=== PATIENT | female | born 1995 | race Caucasian/White ===

== ENCOUNTER 2020-04-21 | Outpatient (REF) | payer OTHER, SELFPAY | END 2020-04-21 00:01 | disposition home or self-care (01) | LOC: HO.LNP | PROVIDERS: Visit Provider Family Medicine | DX: Z20.828 Contact with and (suspected) exposure to other viral communicable diseases (principal) | CPT/HCPCS: 0241U; U0003 ==

== ENCOUNTER 2021-05-12 10:54 | Outpatient (REF) | payer OTHER, SELFPAY ==
[2021-05-12 13:41] LABS: Anion Gap 13 (12-20); Blood Urea Nitrogen 8 mg/dL (9-16); Carbon Dioxide 24 mmol/L (22-29); Chloride 105 mmol/L (96-108); Estimated Glomerular Filt Rate > 60; Glucose Random 91 mg/dL (60-115); Sodium 138 mmol/L (135-145)
== END 2021-05-12 10:55 | disposition home or self-care (01) ==
LOC: HO.WFDLDS 10:54
PROVIDERS: Visit Provider Hospitalist
DX: M54.32 Sciatica, left side (principal)
CPT/HCPCS: 36415; 80048

== ENCOUNTER 2021-07-07 18:03 | Outpatient (REF) | payer OTHER, SELFPAY ==
--- NOTE | ~2021-07-07 | MR_ITS ---
EXAMINATION: MR LUMBAR SPINE WITHOUT CONTRAST CLINICAL INFORMATION: 26-year-old with low back pain and left sciatica. COMPARISON: None TECHNIQUE: MRI of the lumbar spine was obtained using routine sequences without contrast. FINDINGS: Coronal Alignment: Slight mid lumbar levocurvature noted, which is nonspecific and may be positional or related to muscle spasm. Sagittal Alignment: Normal. Lumbosacral Junction: Transitional anatomy with lowest lumbar-like segment labeled as S1, which is partially lumbarized on the right, with a rudimentary S1-S2 intervertebral disc space. Vertebral Bodies: Normal height. Disc Spaces and Endplates: Lumbar intervertebral disc space heights are well maintained. There is mild disc desiccation at L5-S1. No significant spondylosis. Endplates appear intact. Spinal Canal: No abnormal developmental findings. Bone Marrow: No significant marrow-replacing process or bone marrow edema. Conus Medullaris: Terminates at L1. Morphology and signal is normal. Intradural Nerve Roots: Within normal limits. L5-S1: Central to left subarticular disc herniation noted with impingement on the left S1 nerve root in the subarticular zone and mild flattening of the left side of the dural sac. Mild facet arthropathy noted bilaterally without significant central spinal canal stenosis. Mild foraminal narrowing noted bilaterally without neural impingement. The remaining lumbar levels demonstrate no significant disc bulge or herniation and no significant canal or neuroforaminal stenosis. There is minor facet arthropathy at L4-L5. Paraspinal/Retroperitoneal: The paravertebral soft tissues appear grossly unremarkable. MR/MR lumbar spine wo con IMPRESSION: 1. Disc degenerative changes at L5-S1 with a central to left subarticular disc herniation impinging on the traversing left S1 nerve root, as detailed above. 2. Qepc-ag-[id number] facet arthrosis bilaterally at L5-S1 and minor facet arthrosis bilaterally at L4-L5 with mild foraminal narrowing at L5-S1 without neural impingement.
== END 2021-07-07 18:04 | disposition home or self-care (01) ==
LOC: HO.MRI 18:03
PROVIDERS: PCP Hospitalist; Visit Provider Hospitalist
DX: M54.32 Sciatica, left side (principal); T42.6X5A Adverse effect of other antiepileptic and sedative-hypnotic drugs, initial encounter
CPT/HCPCS: 72148

== ENCOUNTER → 2021-08-13 13:03 | Outpatient (BNVA) | payer OTHER, SELFPAY | PROVIDERS: PCP Hospitalist; Visit Provider Nurse Practitioner Family | DX: M51.16 Intervertebral disc disorders with radiculopathy, lumbar region (principal); M51.37 Other intervertebral disc degeneration, lumbosacral region | CPT/HCPCS: 99202 ==

== ENCOUNTER 2021-08-25 06:21 | Outpatient (REF) | payer OTHER, SELFPAY ==
--- NOTE | ~2021-08-25 | FL_ITS ---
EXAMINATION: Intraoperative fluoroscopy CLINICAL INFORMATION: Intravertebral disc degeneration COMPARISON: Lumbar spine MRI 07/07/2021 TECHNIQUE: Intraoperative fluoroscopy was provided for use by Dr. Barraza. A total of 2 images were saved to PACS. A radiologist was not present during imaging. Today's dictation is only for administrative purposes to document intraoperative fluoroscopic usage. TOTAL FLUOROSCOPIC TIME: 0.3 minutes FL/FL guidance in treatment room FINDINGS~\^^ Intraoperative fluoroscopy provided for use by Dr. Barraza. Please see operative note for detailed findings.
== END 2021-08-25 06:22 | disposition home or self-care (01) ==
LOC: HO.RADIR 06:21
PROVIDERS: Visit Provider Internal Medicine
DX: M51.16 Intervertebral disc disorders with radiculopathy, lumbar region (principal); M51.37 Other intervertebral disc degeneration, lumbosacral region
CPT/HCPCS: 62323; J1040; Q9967

== ENCOUNTER → 2021-09-22 13:37 | Outpatient (BNVA) | payer OTHER, SELFPAY | PROVIDERS: PCP Hospitalist; Visit Provider Nurse Practitioner Family | DX: M51.16 Intervertebral disc disorders with radiculopathy, lumbar region (principal) ==

== ENCOUNTER 2021-12-08 06:18 | Outpatient (REF) | payer OTHER, SELFPAY ==
--- NOTE | ~2021-12-08 | FL_ITS ---
CLINICAL INDICATION: Other intervertebral disc degeneration, lumbosacral region. FINDINGS: Technical assistance and equipment were provided by the Department of Radiology during intraoperative fluoroscopy for percutaneous injection. 4, limited fluoroscopic spot images are submitted. A radiologist was not present during the procedure. Images demonstrate the tip of a percutaneous needle to project over the posterior elements of the lower lumbar/upper sacral spine. Contrast has been injected, some of which may lie in the epidural space. The images are available for review on PACS. TOTAL FLUOROSCOPY TIME: 0.6 minutes. CUMULATIVE DOSE: 42.8 mGy FL/FL guidance in treatment room IMPRESSION: Technical assistance and equipment provided by the Department of Radiology during intraoperative fluoroscopy, as above. Please see operative report for further details.
== END 2021-12-08 06:19 | disposition home or self-care (01) ==
LOC: HO.RADIR 06:18
PROVIDERS: Visit Provider Internal Medicine
DX: M51.16 Intervertebral disc disorders with radiculopathy, lumbar region (principal); M51.37 Other intervertebral disc degeneration, lumbosacral region
CPT/HCPCS: 62323; J1040

== ENCOUNTER 2021-12-15 05:46 | Outpatient (REF) | payer OTHER, SELFPAY ==
--- NOTE | ~2021-12-15 | FL_ITS ---
EXAMINATION: XR FLUOROSCOPY WITH IMAGES CLINICAL INFORMATION: M51.16 - Intervertebral disc disorders with radiculopathy, lumbar region COMPARISON: MR lumbar spine to 222 TECHNIQUE: Fluoroscopy performed by Dr. Rocco Curry. Fluoroscopy time: 1.1 minutes. Cumulative Dose: 35.7 mGy. DAP: 4.45 Gycm2. Images: 2. FINDINGS: Lateral view shows needle at the sacral hiatus. The frontal view shows epidural contrast with some contrast in the nerve sheath. No visible vascular communication. FL/FL guidance in treatment room IMPRESSION: Fluoroscopy for pain management procedure.
== END 2021-12-15 05:47 | disposition home or self-care (01) ==
LOC: HO.RADIR 05:46
PROVIDERS: Visit Provider Internal Medicine
DX: M54.16 Radiculopathy, lumbar region (principal); M51.37 Other intervertebral disc degeneration, lumbosacral region
CPT/HCPCS: 62323; J1020; J1040

== ENCOUNTER → 2022-01-07 08:35 | Outpatient (BNVA) | payer OTHER, SELFPAY | PROVIDERS: PCP Hospitalist; Visit Provider Internal Medicine | DX: M51.16 Intervertebral disc disorders with radiculopathy, lumbar region (principal) | CPT/HCPCS: 99212 ==

== ENCOUNTER 2023-12-28 15:54 | Outpatient (AMB) | payer OTHER, SELFPAY ==
[2023-12-28 15:57] VITALS: BP 112/66; PULSE 78; RESP 12; O2SAT 99; BMI 39.1
--- NOTE | 2023-12-28 15:57 | MHC.PC.OV ---
Vital Signs 12/28/23 15:57 Height 5 ft 6 in Weight 242 lb BMI 39.1 BP 112/66 Blood Pressure Location Rt brachial Position Sitting Respiration 12 Pulse 78 Pulse Source Pulse Oximeter Pulse Oximetry (%) 99 Oxygen Delivery Method Room Air Intake Visit Reasons: new pt / ed follow up as well Patient Registration Specialist Required: No Accompanied by: Self / Same As Patient Allergies amoxicillin [AMOXICILLIN] Allergy (Unknown, Verified 12/28/23 16:05) UKN, hives Sulfa (Sulfonamide Antibiotics) Allergy (Unknown, Verified 12/28/23 16:05) hives gabapentin Adverse Reaction (Severe, Verified 12/28/23 16:05) Agitated Tobacco use date assessed: 12/28/23 Dental Screening Dental Screen Date: 12/28/23 Did you have a dental visit in the last 12 months?: Yes Did you have a dental problem in the last 6 months where you did not have access to dental care?: No Was dental information given to patient?: Patient has dentist HPI HPI Comments History of Present Illness Details This is a 28-year-old female with a past medical history of anemia, lumbar degenerative disc disease, anxiety, depression and asthma presenting for ER follow up. She is a new patient to me. Patient was at home on Monday morning on 12/22/2023. She was with her kids. Patient says she started to feel off and dizzy. It felt like the room was spinning. She then became more lightheaded, had tunnel vision and felt warm. She tried to lower herself to the floor and she did faint, but she says it was only for a few seconds. When she came to the room was still spinning. She felt nauseous and made it to the bathroom but vomited. She thinks this was due to anxiety. Her mother drove her to the ER. Their computers were down. She reportedly had an EKG that was normal but no additional workup due to the computer issue. She was given meclizine and antinausea medication. Meclizine made her feel very tired and gave her palpitations so she stopped using it. She also did not feel like it helped with her symptoms. She has been feeling episodes of lightheadedness and off-balance or room spinning for a few months before this. Episodes are not frequent. Now she is having the sensation like the room is spinning when she moves her head. No chest pain, palpitations (other than with meclizine), shortness of breath, vision changes, hearing loss, ear pain, numbness, weakness, speech changes. She is under a lot of stress. She took care of her father for 1 year before he in 11/22/2022. She has 3 young children at home, all boys. She is seeing a therapist. She is trying to lose weight. She has tried diet and exercise during the past year. She is interested in weight loss medication. ROS: Constitutional: No unexplained weight loss, fever, chills, increased fatigue or night sweats. Eyes: No vision changes, blurry vision, double vision, eye pain, eye redness, eye discharge. ENT: No hearing loss, ear pain, sneezing, congestion, runny nose or sore throat. Respiratory: No shortness of breath, cough or sputum production. Cardiovascular: No chest pain, chest pressure or chest discomfort. No palpitations (other than when she took meclizine) or pedal edema. Gastrointestinal: + nausea with vertigo. No abdominal pain or blood in stools. Genitourinary: No dysuria, hematuria, urinary frequency. Neurologic: +migraine headaches, no tingling, no tremors or seizures, see HPI Physical exam: Constitutional: Alert, in no distress. Head: Normocephalic. Eyes: Pupils are equal, round and reactive to light. Extraocular muscles intact. Ear, Nose and Throat: Canals clear. TMs normal. Normal nasal mucosa. No nasal discharge. No oral lesions. Neck: Supple, Full range of motion. No lymphadenopathy. No palpable thyroid masses. Respiratory: Clear to auscultation. Cardiovascular: S1 S2 regular. No murmurs. Gastrointestinal: Abdomen soft, non-tender, non-distended. Normal bowel sounds. No palpable masses. Neurologic:?Alert and oriented x 3, no focal deficits observed, CN 2-12 intact, lajavq-[id number]-[id number] normal, sensation equal and symmetric, strength UE and LE 5/5 bilaterally, reflexes equal and symmetric.? Normal gait.? No pronator drift.? Negative Romberg. Extremities: Warm and well perfused. No clubbing, cyanosis or edema. 3+ peripheral pulses bilaterally. Psychiatric: Normal mood and affect [facility] Medical History (Updated 12/29/23 @ 09:57 by DEVIN Montalvo) Obesity Depression with anxiety Syncope Vertigo Anemia Surgical History (Updated 12/28/23 @ 16:11 by Yara Soto CMA) History of microdiscectomy History of 3 sections Family History Mother Substance use disorder Mental health disorder Father Substance use disorder Mental health disorder Social History (Updated 12/28/23 @ 16:07 by Yara Soto CMA) Household Members: Spouse and Children Housing: House Are you a primary resident care provider to a significant other at home: No Do you presently have visiting nurse or other home services: No 75 years or older and lives alone: No Alcohol intake: never Patient Tobacco Use Status: Former Tobacco user e-Cigarette/Vaping Use: Never Used Second Hand Smoke Exposure: No service: No Current occupational status: unemployed Current occupation: [employer] Current occupational exposures/hazards: No Cognitive needs: No Hearing needs: No Vision needs: Yes (Glasses) Questionnaire PHQ-9 Over the last 2 weeks, how often have you been bothered by any of the following problems? 1. Little interest or pleasure in doing things: more than half the days 2. Feeling down, depressed, or hopeless: more than half the days 3. Trouble falling or staying asleep, or sleeping too much: not at all 4. Feeling tired or having little energy: more than half the days 5. Poor appetite or overeating: nearly every day 6. Feeling bad about yourself - or that you are a failure or have let yourself or your family down: more than half the days 7. Trouble concentrating on things, such as reading the newspaper or watching television: not at all 8. Moving or speaking so slowly that other people could have noticed. Or the opposite - being so fidgety or restless that you have been moving around a lot more than usual: not at all 9. Thoughts that you would be better off or of hurting yourself in some way: not at all Total score: 11 Depression Screening Interpretation: Positive Depression Screening Follow-up: Existing condition and In treatment Depression Screening Done: Yes 49414 - PHQ-9 Billing: Yes Source: Developed by Drs. Aries MasseyJackie Kurt Kroenke and colleagues, with an educational bul from [employer]. Thrive Questionnaire Date Thrive assessed: 12/28/23 I am a: Patient What is your living situation today?: I have a steady place to live Within the past 12 months, did the food you bought not last and you didn't have the money to get more?: Never true Within the past 12 months, did you worry whether your food would run out before you got money to buy more?: Never true Do you have trouble paying for medicines?: No Do you have trouble getting transportation to medical appointments?: No Do you have trouble paying your heating and electricity bill?: No Do you have trouble taking care of your child, family member or friend?: No Do you have trouble with day-to-day activities such as bathing, preparing meals, shopping, managing finances, etc.?: No Are you currently unemployed and looking for a job?: No Are you interested in more education?: No Please select the resources that you would like help with: None Currently or been in a relationship where the following occur: No concerns reported THRIVE Score: 0 AUDIT C Alcohol Use Questionnaire (AUDIT-C) 1. How often do you have a drink containing alcohol?: Never 3. How often do you have six or more drinks on one occasion?: Never Total Score: 0 DINESH-7 AMB Questionnaire DINESH-7 Date DINESH - 7 assessed: 12/28/23 Feeling nervous, anxious, or on edge: 1 = Several days Not being able to stop or control worryin = Several days Worrying too much about different things: 3 = Nearly every day Trouble relaxin = Not at all Being so restless that it is hard to sit still: 3 = Nearly every day Becoming easily annoyed or irritable: 3 = Nearly every day Source: Developed by Drs. Aries Massey, Jer Medina and colleagues, with an educational blu from [employer]. Physical exam (Primary Care) Vital Signs: Last Vital Signs Pulse 78 12/28/23 15:57 Resp 12 12/28/23 15:57 BP 112/66 12/28/23 15:57 Pulse Ox 99 12/28/23 15:57 Oxygen Delivery Method Room Air 12/28/23 15:57 BMI result Body Mass Index 39.1 Tobacco/Smoking Status: Tobacco use Status Tobacco use date assessed 12/28/23 12/28/23 16:08 Patient Tobacco Use Status Former Tobacco user 12/28/23 16:08 e-Cigarette/Vaping Use Never Used 12/28/23 16:08 PHQ-9: PHQ-9 Score PHQ-9: Total score 11 12/29/23 08:33 Depression Screening Interpretation: Positive Depression Screening Follow-up: Existing condition and In treatment Thrive Assessment: Date of Thrive Assessment Date Thrive assessed 12/28/23 12/28/23 16:08 Currently or been in a relationship where the following occur: No concerns reported Assessment and Plan Assessment & Plan (1) Vertigo: Code(s): R42 - Dizziness and giddiness (2) Syncope: Code(s): R55 - Syncope and collapse Qualifiers: Syncope type: unspecified Qualified Code(s): R55 - Syncope and collapse (3) Anemia: Code(s): D64.9 - Anemia, unspecified Qualifiers: Anemia type: iron deficiency Iron deficiency anemia type: other iron deficiency Qualified Code(s): D50.8 - Other iron deficiency anemias (4) Depression with anxiety: Code(s): F41.8 - Other specified anxiety disorders (5) Obesity: Code(s): E66.9 - Obesity, unspecified Qualifiers: Obesity type: due to excess calories Obesity classification: adult class 2 (BMI 35 - 39.9) Serious obesity comorbidity presence: with serious comorbidity Body mass index: BMI 39.0-39.9 Qualified Code(s): E66.01 - Morbid (severe) obesity due to excess calories; Z68.39 - Body mass index [BMI] 39.0-39.9, adult Plan Vertigo She continues to experience vertigo symptoms with positional movements. Meclizine caused side effects and was ineffective. Benzodiazepines not a good alternative in this situation as she does have 3 children she cares for at home, and she does not want to take medication that is sedating. Reviewed home exercises and referred for vestibular rehab. Syncope This may have been vasovagal syncope from anxiety due to her vertigo symptoms. She has not had another episode. EKG reportedly normal at ED. see detailed lab list below. Given vertigo with syncope and history of headaches proceed with MRI with and without contrast. Anemia Check labs. Depression with anxiety Followed closely by therapist. Obesity Check TSH. Unable to lose weight with lifestyle modification for more than 6 months. Hopefully vertigo symptoms will improve with PT. Once MRI and labs are resulted if there are no contraindications we will proceed with Wegovy or Zepbound Follow up in 6 weeks. Orders: Orders Complete Blood Count Auto Diff 12/28/23 D64.9 - Anemia, unspecified, R42 - Dizziness and giddiness HCG Quantitative 12/28/23 D64.9 - Anemia, unspecified, R42 - Dizziness and giddiness PT Evaluation and Treatment 12/28/23 R42 - Dizziness and giddiness TSH reflex Free T4 12/28/23 D64.9 - Anemia, unspecified, E66.9 - Obesity, unspecified, R42 - Dizziness and giddiness Comprehensive Met. Panel 12/28/23 D64.9 - Anemia, unspecified, R42 - Dizziness and giddiness Lyme IgG/IgM w/reflex to WB 12/28/23 D64.9 - Anemia, unspecified, R42 - Dizziness and giddiness IRON PROFILE 12/28/23 D64.9 - Anemia, unspecified, R42 - Dizziness and giddiness Ferritin 12/28/23 D64.9 - Anemia, unspecified, R42 - Dizziness and giddiness MR head/brain wo/w con Today R42 - Dizziness and giddiness, R55 - Syncope and collapse Coding Level of Care Code Est Pt Level 4 (44430) Complex EM visit Add On G2211 Diagnoses Vertigo R42 Syncope, unspecified syncope type R55 Syncope type: unspecified Other iron deficiency anemia D50.8 Anemia type: iron deficiency Iron deficiency anemia type: other iron deficiency Depression with anxiety F41.8 Class 2 severe obesity due to excess calories with serious comorbidity and body mass index (BMI) of 39.0 to 39.9 in adult E66.01; Z68.39 Obesity type: due to excess calories Obesity classification: adult class 2 (BMI 35 - 39.9) Serious obesity comorbidity presence: with serious comorbidity Body mass index: BMI 39.0-39.9
== END 2023-12-28 16:44 | disposition home or self-care (01) ==
PROVIDERS: PCP Hospitalist; Visit Provider Physician Assistant Medical
DX: R42 Dizziness and giddiness (principal); R55 Syncope and collapse; D50.8 Other iron deficiency anemias; F41.8 Other specified anxiety disorders; E66.01 Morbid (severe) obesity due to excess calories; Z68.39 Body mass index [BMI] 39.0-39.9, adult
CPT/HCPCS: 99214; G2211

== ENCOUNTER 2023-12-30 08:40 | Outpatient (REF) | payer OTHER, SELFPAY ==
[2023-12-30 08:54] LABS: MANUAL DIFF FLAG NO
[2023-12-30 09:36] LABS: Basophils Percent Auto 0.4 % (0-2); Eosinophils Absolute Auto 0.2 X10*3/uL (0.0-0.4); Eosinophils Percent Auto 2.7 % (0-4); Hematocrit 40.3 % (37.0-47.0); Hemoglobin 12.9 g/dl (12.0-16.0); Imm Gran Abs Auto 0.03 X10*3/uL (0.00-0.03); Imm Gran Pct Auto 0.4 % (0.0-0.4); Lymphocytes Absolute Auto 2.1 X10*3/uL (1.2-4.9); Mean Corpuscular Hemoglobin 26.2 pg (27.0-33.0); Mean Corpuscular Volume 81.9 fL (80.0-98.0); Mean Platelet Volume 8.5 fL (9.4-12.3); Monocytes Absolute Auto 0.6 X10*3/uL (0.1-1.2); Monocytes Percent Auto 6.6 % (2-11); Neutrophils Absolute Auto 5.5 x10*3/uL (2.0-8.3); Neutrophils Percent Auto 64.9 % (45-73); Platelet Count 423 X10*3/uL (160-400); Red Blood Count 4.92 X10*6/uL (4.20-5.50); Red Cell Distribution Width 15.1 % (11.0-16.0); White Blood Count 8.4 X10*3/uL (4.8-10.8)
[2023-12-30 12:04] LABS: Alanine Aminotransferase 16 U/L (0-31); Albumin Level 4.5 g/dL (3.5-5.0); Alkaline Phosphatase 75 U/L (39-117); Anion Gap 13 (12-20); Aspartate Amino Transferase 14 U/L (5-31); Bilirubin Total 0.3 mg/dL (0.0-1.0); Blood Urea Nitrogen 8 mg/dL (9-16); Calcium 9.7 mg/dL (8.4-10.2); Carbon Dioxide 23 mmol/L (22-29); Chloride 105 mmol/L (96-108); Estimated Glomerular Filt Rate > 60; Ferritin 21 ng/mL (10-122); Glucose Random 110 mg/dL (60-115); HCG Quantitative < 2 mIU/mL; Iron 49 mcg/dL (30-160); Percent Iron Saturation 15 % (15-50); Potassium 4.3 mmol/L (3.3-5.1); Sodium 137 mmol/L (135-145); TSH reflex Free T4 2.01 uIU/mL (0.32-4.0); Total Iron Binding Capacity 319 mcg/dL (228-428); Total Protein 7.7 g/dL (6.5-8.0); Unsaturated Iron Binding 270 ug/dL
[2024-01-01 17:14] LABS: Lyme Abs Screen <0.90 index
== END 2023-12-30 08:41 | disposition home or self-care (01) ==
LOC: HO.LAB 08:40
PROVIDERS: PCP Physician Assistant Medical; Visit Provider Physician Assistant Medical
DX: R42 Dizziness and giddiness (principal); D64.9 Anemia, unspecified; E66.9 Obesity, unspecified
CPT/HCPCS: 36415; 80053; 82728; 83540; 84443; 84702; 85025; 86617; 86618

== ENCOUNTER 2024-02-02 08:00 | Outpatient (RCR) | payer OTHER, SELFPAY ==
[2024-01-30 14:09] VITALS: BP 129/64; PULSE 80
--- NOTE | 2024-01-30 15:15 | MHC.PT.EP ---
[facility] [place] [facility] [place] [facility] [place] [facility] [address] [phone] F: [phone] F: [phone] F: [phone] F: [phone] Physical Therapy Plan of Care Date of Evaluation: 01/30/24 Date of Surgery: NA Diagnosis: Benign paroxysmal vertigo Assessment: Abimbola is a 28 year old female who is referred to PT for Benign paroxysmal vertigo . She reports of having sudden onset of symptoms of vertigo about 2-3 months back. She denies any trauma or falls. She reports of having room spinning dizziness with rolling, sit to supine, looking up or down and turning side to side. Her symptoms last for a few seconds. On PT examination she presented with intact saccades smooth pursuit, visual tracking, negative VBI and head thrust. She was positive for L PC BPPV. She lives with her family and is independent with all ADLS however just performs them slowly to avoid LOB. She would benefit from skilled PT to address the aforementioned impairments and improve tolerance to functional activities. Frequency and Duration: The patient will be seen 2/week for 4 weeks Short Term Goals: Longterm Goals: Patient to be educated on symptoms and indications to return to therapy when needed min 4 weeks. Pt will be negative for nystagmus or reports of vertigo in all diagnostic positions bilaterally to resolution of BPPV in 4 weeks. Patient to be able to functionally move in all planes and directions without provocation of dizziness to show return to PLOF in 4 weeks. Treatment Plan: Modalities to reduce pain, spasms and effusion. Manual therapy to restore motion and function. Therapeutic exercise to improve strength and flexibility. Neuromuscular re-education for posture and balance. Therapeutic activities to return to functional activities of daily living. Electronically signed by: Alison Bloom PT DPT Please sign and return to therapist. Thank you for your referral.
--- NOTE | 2024-03-08 13:13 | MHC.PT.DC ---
[facility] [place] [facility] [place] [facility] [place] [facility] [address] 140 [facility] [phone] F: [phone] F: [phone] F: [phone] F: [phone] Physical Therapy Discharge Report Diagnosis: Benign paroxysmal vertigo Date of Surgery: NA Date of Evaluation: 01/30/24 Date of Discharge: 03/08/24 Treatments to Date: 3 Cancellations to Date: 0 No Shows to Date: 0 Discharge Status: Achieved Goals Improved Function Discharge Summary: Karina has not had any symptoms of vertigo in over a month. She is therefore being d/c from PT. Electronically signed by: Alison Bloom PT DPT Please sign and return to therapist. Thank you for your referral.
== END 2024-03-08 13:13 | disposition home or self-care (01) ==
LOC: HO.PT 08:00
PROVIDERS: PCP Physician Assistant Medical; Visit Provider Physician Assistant Medical
DX: R42 Dizziness and giddiness (principal)
CPT/HCPCS: 95992; 97112; 97161

== ENCOUNTER 2024-02-08 09:12 | Outpatient (AMB) | payer OTHER, SELFPAY ==
--- NOTE | 2024-02-08 09:13 | MHC.PC.OV ---
Vital Signs 02/08/24 09:21 Height 5 ft 6 in Weight 245 lb 4 oz BMI 39.6 BP 108/70 Blood Pressure Location Lt brachial Position Sitting Pulse 85 Pulse Source Pulse Oximeter Pulse Oximetry (%) 95 Oxygen Delivery Method Room Air Intake Visit Reasons: vertigo Intake Note: Vertigo follow up. Environmental Research Project Manager Required: No Allergies amoxicillin [AMOXICILLIN] Allergy (Unknown, Verified 02/08/24 09:19) UKN, hives Sulfa (Sulfonamide Antibiotics) Allergy (Unknown, Verified 02/08/24 09:19) hives gabapentin Adverse Reaction (Severe, Verified 02/08/24 09:19) Agitated Tobacco use date assessed: 12/28/23 Dental Screening Dental Screen Date: 12/28/23 HPI HPI Comments History of Present Illness Details This is a 28-year-old female with a past medical history of anemia, lumbar degenerative disc disease, anxiety, depression and asthma presenting for follow up. Since her last visit she started physical therapy for vertigo. She has gone a few times, and her symptoms are much better. She only has an occasional mild episode of vertigo. MRI is scheduled next week. No further syncopal episodes. She is under a lot of stress. She took care of her father for 1 year before he in 11/22/2022. She has 3 young children at home, all boys. She is seeing a therapist. She walks every day and is doing low carb meal prep. She has tried this for 6-12 months. She has not lost weight. We reviewed her lab work. TSH was normal. She would like to try weight loss medication. Her fasting sugar was mildly elevated. She may have had cream in her coffee that day. Her platelet count was also mildly decreased. ROS: Constitutional: No unexplained weight loss, fever, chills, increased fatigue or night sweats. Eyes: No vision changes, blurry vision, double vision, eye pain, eye redness, eye discharge. ENT: No hearing loss, ear pain, sneezing, congestion, runny nose or sore throat. Respiratory: No shortness of breath, cough or sputum production. Cardiovascular: No chest pain, chest pressure or chest discomfort. No palpitations or pedal edema. Genitourinary: No dysuria, hematuria, urinary frequency. Neurologic: +migraine headaches, no tingling, no tremors or seizures, see HPI Physical exam: Constitutional: Alert, in no distress. Neck: Supple, Full range of motion. No lymphadenopathy. No palpable thyroid masses. Respiratory: Clear to auscultation. Cardiovascular: S1 S2 regular. No murmurs.y. Psychiatric: Normal mood and affect [facility] Medical History (Updated 02/08/24 @ 13:26 by DEVIN Montalvo) Abnormal CBC IFG (impaired fasting glucose) Obesity Depression with anxiety Syncope Vertigo Anemia Surgical History (Updated 12/28/23 @ 16:11 by Yara Soto CMA) History of microdiscectomy History of 3 sections Family History Mother Substance use disorder Mental health disorder Father Substance use disorder Mental health disorder Social History (Updated 12/28/23 @ 16:07 by Yara Soto CMA) Household Members: Spouse and Children Housing: House Are you a primary mall plant caretaker to a significant other at home: No Do you presently have visiting nurse or other home services: No Alcohol intake: never Patient Tobacco Use Status: Former Tobacco user e-Cigarette/Vaping Use: Never Used Second Hand Smoke Exposure: No service: No Current occupational status: unemployed Current occupation: [employer] Current occupational exposures/hazards: No Cognitive needs: No Hearing needs: No Vision needs: Yes (Glasses) Questionnaire Thrive Questionnaire Date Thrive assessed: 12/28/23 DINESH-7 AMB Questionnaire DINESH-7 Date DINESH - 7 assessed: 12/28/23 Source: Developed by Drs. Aries Massey, Jackie Browne, Jer Smyth and colleagues, with an educational blu from [employer]. Physical exam (Primary Care) Vital Signs: Last Vital Signs Pulse 85 02/08/24 09:21 BP 108/70 02/08/24 09:21 Pulse Ox 95 02/08/24 09:21 Oxygen Delivery Method Room Air 02/08/24 09:21 BMI result Body Mass Index 39.6 Tobacco/Smoking Status: Tobacco use Status Tobacco use date assessed 12/28/23 02/08/24 09:15 Patient Tobacco Use Status Former Tobacco user 02/08/24 09:15 e-Cigarette/Vaping Use Never Used 02/08/24 09:15 Thrive Assessment: Date of Thrive Assessment Date Thrive assessed 12/28/23 02/08/24 09:15 Assessment and Plan Assessment & Plan (1) Obesity: Code(s): E66.9 - Obesity, unspecified Qualifiers: Obesity type: due to excess calories Obesity classification: adult class 2 (BMI 35 - 39.9) Serious obesity comorbidity presence: with serious comorbidity Body mass index: BMI 39.0-39.9 Qualified Code(s): E66.01 - Morbid (severe) obesity due to excess calories; Z68.39 - Body mass index [BMI] 39.0-39.9, adult Plan: Continue lifestyle modifications. TSH normal. She has failed 6 months of lifestyle modifications. Prescribed Zepbound. The patient denies contraindications to GLP-1 receptor agonist. We reviewed the FDA preliminary evaluation that has not found evidence that these medications cause suicidal thoughts or actions, but the investigation is ongoing. If the patient develops these symptoms they will stop taking the medication immediately and contact the office. We reviewed more common side effects such as bloating, constipation, nausea and vomiting. We reviewed the administration and dosing schedule. The patient is instructed to continue lifestyle modifications and efforts at weight loss. We discussed how weight loss can cause physiologic changes in the body and that some patients may experience hair thinning/hair loss. (2) Vertigo: Code(s): R42 - Dizziness and giddiness Plan: Patient is very happy with results from PT. She will have MRI completed as planned given prior episode with syncope. (3) IFG (impaired fasting glucose): Code(s): R73.01 - Impaired fasting glucose Plan: Check hemoglobin A1c. (4) Abnormal CBC: Code(s): R79.89 - Other specified abnormal findings of blood chemistry Plan: Repeat CBC. Plan Follow up in 3 months. Orders: Orders Complete Blood Count Auto Diff Today R73.01 - Impaired fasting glucose, R79.89 - Other specified abnormal findings of blood chemistry Hemoglobin A1c Today R73.01 - Impaired fasting glucose, R79.89 - Other specified abnormal findings of blood chemistry Medications: New tirzepatide (weight loss) (Zepbound) for 4 weeks 2.5 mg (0.5 mL) subcut QWEEK 2 mL 0RF Coding Level of Care Code Est Pt Level 4 (90935) Complex EM visit Add On G2211 Diagnoses Class 2 severe obesity due to excess calories with serious comorbidity and body mass index (BMI) of 39.0 to 39.9 in adult E66.01; Z68.39 Obesity type: due to excess calories Obesity classification: adult class 2 (BMI 35 - 39.9) Serious obesity comorbidity presence: with serious comorbidity Body mass index: BMI 39.0-39.9 Vertigo R42 IFG (impaired fasting glucose) R73.01 Abnormal CBC R79.89
[2024-02-08 09:21] VITALS: BP 108/70; PULSE 85; O2SAT 95; BMI 39.6
== END 2024-02-08 10:03 | disposition home or self-care (01) ==
PROVIDERS: PCP Hospitalist; Visit Provider Physician Assistant Medical
DX: E66.01 Morbid (severe) obesity due to excess calories (principal); Z68.39 Body mass index [BMI] 39.0-39.9, adult; R42 Dizziness and giddiness; R73.01 Impaired fasting glucose; R79.89 Other specified abnormal findings of blood chemistry
CPT/HCPCS: 99214; G2211

== ENCOUNTER 2024-02-08 10:11 | Outpatient (REF) | payer OTHER, SELFPAY ==
[2024-02-08 14:42] LABS: MANUAL DIFF FLAG NO
[2024-02-08 14:48] LABS: Basophils Percent Auto 0.4 % (0-2); Eosinophils Absolute Auto 0.2 X10*3/uL (0.0-0.4); Eosinophils Percent Auto 1.8 % (0-4); Hematocrit 38.4 % (37.0-47.0); Hemoglobin 12.4 g/dl (12.0-16.0); Imm Gran Abs Auto 0.04 X10*3/uL (0.00-0.03); Imm Gran Pct Auto 0.4 % (0.0-0.4); Lymphocytes Absolute Auto 2.3 X10*3/uL (1.2-4.9); Lymphocytes Percent Auto 25.7 % (20-40); Mean Corpuscular HGB Conc 32.3 g/dl (31.0-35.0); Mean Corpuscular Hemoglobin 26.8 pg (27.0-33.0); Mean Corpuscular Volume 83.1 fL (80.0-98.0); Mean Platelet Volume 8.6 fL (9.4-12.3); Monocytes Absolute Auto 0.5 X10*3/uL (0.1-1.2); Monocytes Percent Auto 5.2 % (2-11); Neutrophils Percent Auto 66.5 % (45-73); Platelet Count 394 X10*3/uL (160-400); Red Blood Count 4.62 X10*6/uL (4.20-5.50); Red Cell Distribution Width 14.8 % (11.0-16.0)
[2024-02-08 14:55] LABS: Estimated Average Glucose 108 mg/dL; Hemoglobin A1c % 5.4 % (<6.0)
== END 2024-02-08 10:12 | disposition home or self-care (01) ==
LOC: HO.WFDLDS 10:11
PROVIDERS: Visit Provider Physician Assistant Medical
DX: R73.01 Impaired fasting glucose (principal); R79.89 Other specified abnormal findings of blood chemistry
CPT/HCPCS: 36415; 83036; 85025

== ENCOUNTER 2024-02-13 15:53 | Outpatient (REF) | payer OTHER, SELFPAY ==
--- NOTE | ~2024-02-13 | MR_ITS ---
EXAMINATION: MR BRAIN WITHOUT AND WITH CONTRAST CLINICAL INFORMATION: vertigo r/o acoustic neuroma COMPARISON: None TECHNIQUE: Multiplanar multisequence MR imaging of the brain was obtained without and following the administration of 10 mL Gadavist intravenous contrast. FINDINGS: There is no acute infarct on diffusion-weighted imaging. There is no intracranial hemorrhage on iron-sensitive imaging. No extra-axial collection or mass effect/herniation. Normal parenchymal signal characteristics. The 7th and 8th cranial nerve complexes are symmetric in course, caliber, and enhancement characteristics. Major inner ear structures including the cochlea, semicircular canals, and vestibule are symmetric in morphology and demonstrate normal CSF signal. No enhancing intracanalicular or cerebellopontine angle mass lesion is visualized. No hydrocephalus. The ventricles are normal in morphology and size. No abnormal parenchymal or extra-axial enhancement. The midline structures are normal. The cerebellar tonsils are normally positioned. The craniocervical junction is normal. Marrow signal is within normal limits. The visualized soft tissues are without significant abnormality. No signal abnormality within the paranasal sinuses or within the mastoid air cells. Hypoplastic right maxillary sinus. MR/MR head/brain wo/w con IMPRESSION: No evidence of retrocochlear pathology. Electronically signed by: Tex Soria MD 02/28/2024 12:12 PM EDT
[2024-02-13] MEDS: gadobutroL 10 ML VIAL IVPUSH (16:30)
== END 2024-02-13 15:54 | disposition home or self-care (01) ==
LOC: HO.MRI 15:53
PROVIDERS: PCP Physician Assistant Medical; Visit Provider Physician Assistant Medical
DX: R42 Dizziness and giddiness (principal); R55 Syncope and collapse
CPT/HCPCS: 70553; A9585

== ENCOUNTER 2024-05-13 09:10 | Outpatient (AMB) | payer OTHER, SELFPAY ==
--- NOTE | 2024-05-13 09:12 | MHC.PC.OV ---
Vital Signs 05/13/24 09:19 Height 5 ft 6 in Weight 233 lb BMI 37.6 BP 110/82 Blood Pressure Location Rt brachial Position Sitting Pulse 79 Pulse Source Pulse Oximeter Pulse Oximetry (%) 99 Oxygen Delivery Method Room Air Intake Visit Reasons: med check zepbound Intake Note: Follow up Head Of [employer]s Required: No Allergies amoxicillin [AMOXICILLIN] Allergy (Unknown, Verified 05/13/24 09:12) UKN, hives Sulfa (Sulfonamide Antibiotics) Allergy (Unknown, Verified 05/13/24 09:12) hives gabapentin Adverse Reaction (Severe, Verified 05/13/24 09:12) Agitated Tobacco use date assessed: 05/13/24 Dental Screening Dental Screen Date: 12/28/23 HPI HPI Comments History of Present Illness Details This is a 29-year-old female with a past medical history of obesity, impaired fasting glucose, depression with anxiety, vertigo, panic attacks and asthma presenting for follow up. The patient is doing well on Zepbound 5 mg weekly. She initially experienced nausea and vomiting when she increased the dose for the 1st week. Her side effects resolved. She is losing approximately 2 lb per week. She is able to make healthier choices even when she is busy. She is making sure to supplement with a protein drink if she is not hungry or if she is on the go. Her weight is down to 233 lb today from 245 lb in February. The holiday was a bit underwhelming for her. Her son's birthday falls on or near . Some of her family members did not really recognize it this year. She has not spoken with her therapist since July of this year. The patient has a abandonment issues, and she says her long-time therapist forgot about some of their appointments which triggered her. The patient lived with her grandfather when she was growing up. When he she was in the care of an aunt sometimes and her mother. Patient says her other 2 siblings were not raised by her mother. The patient says when she was a teenager ADD medication was recommended to her, and she wonders if some of her depression symptoms are due to untreated ADD. She finds it very difficult to make decisions for herself. She feels like this affects her quality of life and parenting. ROS: Constitutional: No unexplained weight loss, fever, chills, fatigue or night sweats. Psychiatric: No SI/HI. Physical exam: Constitutional: Alert, in no distress. Respiratory: Clear to auscultation. Cardiovascular: S1 S2 regular. No murmurs. Psychiatric: Normal mood and affect [facility] Medical History (Updated 02/08/24 @ 13:26 by DEVIN Montalvo) Abnormal CBC IFG (impaired fasting glucose) Obesity Depression with anxiety Syncope Vertigo Anemia Surgical History History of microdiscectomy History of 3 sections Family History Mother Substance use disorder Mental health disorder Father Substance use disorder Mental health disorder Social History (Updated 05/13/24 @ 09:19 by Suzanna Sr CMA) Household Members: Spouse and Children Housing: House Are you a primary intensive care ambulance paramedic to a significant other at home: No Do you presently have visiting nurse or other home services: No 75 years or older and lives alone: No Alcohol intake: never Patient Tobacco Use Status: Former Tobacco user e-Cigarette/Vaping Use: Never Used Second Hand Smoke Exposure: No service: No Current occupational status: unemployed Current occupation: [employer] Current occupational exposures/hazards: No Cognitive needs: No Hearing needs: No Vision needs: Yes (Glasses) Questionnaire PHQ-9 Over the last 2 weeks, how often have you been bothered by any of the following problems? 1. Little interest or pleasure in doing things: more than half the days 2. Feeling down, depressed, or hopeless: more than half the days 3. Trouble falling or staying asleep, or sleeping too much: more than half the days 4. Feeling tired or having little energy: more than half the days 5. Poor appetite or overeating: more than half the days 6. Feeling bad about yourself - or that you are a failure or have let yourself or your family down: more than half the days 7. Trouble concentrating on things, such as reading the newspaper or watching television: more than half the days 8. Moving or speaking so slowly that other people could have noticed. Or the opposite - being so fidgety or restless that you have been moving around a lot more than usual: nearly every day 9. Thoughts that you would be better off or of hurting yourself in some way: not at all Total score: 17 Source: Developed by Drs. Aries Massey, Jackie Browne, Jer Smyth and colleagues, with an educational blu from [employer] Thrive Questionnaire Date Thrive assessed: 05/07/24 I am a: Patient What is your living situation today?: I choose not to answer this question Within the past 12 months, did the food you bought not last and you didn't have the money to get more?: I choose not to answer this question Within the past 12 months, did you worry whether your food would run out before you got money to buy more?: I choose not to answer this question Do you have trouble paying for medicines?: I choose not to answer this question Do you have trouble getting transportation to medical appointments?: I choose not to answer this question Do you have trouble paying your heating and electricity bill?: I choose not to answer this question Do you have trouble taking care of your child, family member or friend?: I choose not to answer this question Do you have trouble with day-to-day activities such as bathing, preparing meals, shopping, managing finances, etc.?: I choose not to answer this question Are you currently unemployed and looking for a job?: I choose not to answer this question Are you interested in more education?: I choose not to answer this question Please select the resources that you would like help with: None Currently or been in a relationship where the following occur: I choose not to answer THRIVE Score: 0 AUDIT C Alcohol Use Questionnaire (AUDIT-C) 1. How often do you have a drink containing alcohol?: Never 3. How often do you have six or more drinks on one occasion?: Never Total Score: 0 DINESH-7 AMB Questionnaire DINESH-7 Date DINESH - 7 assessed: 12/28/23 Feeling nervous, anxious, or on edge: 1 = Several days Not being able to stop or control worryin = Several days Worrying too much about different things: 1 = Several days Trouble relaxin = Several days Being so restless that it is hard to sit still: 0 = Not at all Becoming easily annoyed or irritable: 1 = Several days Feeling afraid as if something awful might happen: 1 = Several days Total DINESH-7 score (0-4 normal; 5-9 mild; 10-14 moderate; 15-21 severe): 6 Source: Developed by Drs. Aries Massey, Jackie Browne, Jer Smyth and colleagues, with an educational blu from [employer] Physical exam (Primary Care) Vital Signs: Last Vital Signs Pulse 79 05/13/24 09:19 BP 110/82 05/13/24 09:19 Pulse Ox 99 05/13/24 09:19 Oxygen Delivery Method Room Air 05/13/24 09:19 BMI result Body Mass Index 37.6 Tobacco/Smoking Status: Tobacco use Status Tobacco use date assessed 05/13/24 05/13/24 09:15 Patient Tobacco Use Status Former Tobacco user 05/13/24 09:19 e-Cigarette/Vaping Use Never Used 05/13/24 09:19 PHQ-9: PHQ-9 Score PHQ-9: Total score 17 05/13/24 10:01 Thrive Assessment: Date of Thrive Assessment Date Thrive assessed 05/07/24 05/13/24 09:15 Currently or been in a relationship where the following occur: I choose not to answer Coding Level of Care Code Est Pt Level 4 (76289) Complex EM visit Add On G2211 Diagnoses IFG (impaired fasting glucose) R73.01 Depression with anxiety F41.8 Obesity, class 2 E66.812 Assessment & Plan Assessment & Plan (1) IFG (impaired fasting glucose): Code(s): R73.01 - Impaired fasting glucose Category: Medical (2) Depression with anxiety: Code(s): F41.8 - Other specified anxiety disorders Category: Medical (3) Obesity, class 2: Code(s): E66.812 - Obesity, class 2 Plan Patient will continue Zepbound 5 mg weekly and lifestyle modifications. She is following a healthy diet. She is making sure she is getting good protein intake. Recommended using a body composition scale to track weight loss. The medication is still medically necessary due to BMI 37.6 and impaired fasting glucose. I recommended patient restart therapy. She would like a referral to a new therapist. Order placed. I also recommended she consider a consult with the psychiatrist which she can discuss with the therapist. Regarding concerns about ADD I recommended a new evaluation and gave her the information for the ADD center [facility]. Follow up in 3 months for a physical exam. Orders: Referrals Psychology Referral F41.8 - Other specified anxiety disorders
[2024-05-13 09:19] VITALS: BP 110/82; PULSE 79; O2SAT 99; BMI 37.6
== END 2024-05-13 10:02 | disposition home or self-care (01) ==
PROVIDERS: PCP Physician Assistant Medical; Visit Provider Physician Assistant Medical
DX: R73.01 Impaired fasting glucose (principal); F41.8 Other specified anxiety disorders; E66.812 Obesity, class 2; Z68.37 Body mass index [BMI] 37.0-37.9, adult

== ENCOUNTER → 2024-05-13 09:10 | Outpatient (BNVA) | payer OTHER, SELFPAY | PROVIDERS: PCP Physician Assistant Medical; Visit Provider Physician Assistant Medical | DX: R73.01 Impaired fasting glucose (principal); F41.8 Other specified anxiety disorders; E66.812 Obesity, class 2; Z68.37 Body mass index [BMI] 37.0-37.9, adult; Z79.899 Other long term (current) drug therapy | CPT/HCPCS: 96127; 99212 ==

== ENCOUNTER 2024-08-15 16:16 | Outpatient (AMB) | payer OTHER, SELFPAY ==
--- NOTE | 2024-08-15 16:24 | A.OFFPC_ITS ---
Vital Signs 08/15/24 16:29 08/15/24 17:16 Height 5 ft 3 in 5 ft 6 in Weight 218 lb 2 oz 218 lb 2 oz BMI 38.6 35.2 BP 119/56 L Blood Pressure Location Lt brachial Position Sitting Respiration 16 Pulse 78 Pulse Source Pulse Oximeter Temp 98.8 F Temp Source Temporal Artery Scan Pulse Oximetry (%) 99 Oxygen Delivery Method Room Air Intake Visit Reasons: annual physical exam Intake Note: patient here for CPE Automotive Mechanic Required: No Is last menstrual period known: Yes Last menstrual period: 08/04/24 Post menopausal: No Patient : No Allergies amoxicillin [AMOXICILLIN] Allergy (Unknown, Verified 08/15/24 16:27) UKN, hives Sulfa (Sulfonamide Antibiotics) Allergy (Unknown, Verified 08/15/24 16:27) hives gabapentin Adverse Reaction (Severe, Verified 08/15/24 16:27) Agitated Tobacco use date assessed: 08/15/24 Dental Screening Dental Screen Date: 08/15/24 Did you have a dental visit in the last 12 months?: No Did you have a dental problem in the last 6 months where you did not have access to dental care?: No Was dental information given to patient?: Patient declined HPI HPI Comments History of Present Illness Details This is a 29-year-old female with a past medical history of obesity, impaired fasting glucose, depression with anxiety, vertigo, panic attacks and asthma presenting for a physical exam. The patient is doing well on Zepbound 5 mg weekly. She is able to make healthier choices even when she is busy. She is making sure to supplement with a protein drink if she is not hungry or if she is on the go. Her weight is down to 218 lb and 2 oz today down from 245 lb in February. She endorses left-sided neck pain for the past year. It hurts when she tries to turn her head to the right. The muscles feel tense. Her partner massages it which helps a little. She does not take medications for it. Denies trauma. It does not radiate down to her arms or hands. It is not associated with numbness or tingling or weakness in her extremities. No chest pain or shortness of breath. Overdue for FAMILY LAW SPECIALIST-she will call to schedule. She will schedule eye and dental eye exams. Declined influenza vaccine. Patient unsure if she received the Tdap vaccine during with her last child. If she did it would be within 10 years. Patient said she would decline vaccine if she is due for it. Endorses plantar warts on the bottom of the left feet that have not improved with [id number] remedies. They are not painful currently. ROS: Constitutional: No unexplained weight loss, fever, chills, fatigue or night sweats. Eyes: No vision changes, blurry vision, double vision, eye pain, eye redness, eye discharge. ENT: No hearing loss, sneezing, congestion, runny nose or sore throat. Respiratory: No shortness of breath, cough or sputum production. Cardiovascular: No chest pain, chest pressure or chest discomfort. No palpitations or pedal edema. Gastrointestinal: No anorexia, nausea, vomiting or diarrhea. No abdominal pain or blood in stool. Genitourinary: No dysuria, hematuria, urinary frequency. Neurologic: No headache, dizziness, syncope, unilateral weakness, ataxia, numbness or tingling in the extremities. Musculoskeletal: See HPI Hematologic/Lymphatics: No bleeding or bruising. No painful lymph nodes. Skin: See HPI Endocrine: No cold or heat intolerance. No polyuria or polydipsia. Psychiatric: No SI/HI. Physical exam: Constitutional: Alert, in no distress. Head: Normocephalic. Eyes: Pupils are equal, round and reactive to light. Extraocular muscles intact. Ear, Nose and Throat: Canals clear. TMs normal. Normal nasal mucosa. No nasal discharge. No oral lesions. Neck: Supple, Full range of motion. No lymphadenopathy. No palpable thyroid masses. Respiratory: Clear to auscultation. Cardiovascular: S1 S2 regular. No murmurs. Gastrointestinal: Abdomen soft, non-tender, non-distended. Normal bowel sounds. No palpable masses. Neurologic: No focal neurological deficits. Symmetric patellar reflexes. Moves all extremities spontaneously. Sensation intact bilaterally. Strength 5/5 bilaterally. Skin: Multiple small plantar warts on the left foot. No erythema or drainage. No swelling. Musculoskeletal: No midline cervical spinal tenderness. Pain is reproduced when she turns her head to the right and with flexion. The left paraspinal muscles are tender and firm. Extremities: Warm and well perfused. No clubbing, cyanosis or edema. Peripheral pulses intact bilaterally. Handgrip strength 5/5 bilaterally. Psychiatric: Normal mood and affect [facility] Medical History (Updated 08/15/24 @ 17:15 by DEVIN Montalvo) Routine physical examination Screening for cardiovascular condition Cervicalgia Plantar wart, left foot Abnormal CBC IFG (impaired fasting glucose) Obesity Depression with anxiety Syncope Vertigo Anemia Surgical History History of microdiscectomy History of 3 sections Family History Mother Substance use disorder Mental health disorder Father Substance use disorder Mental health disorder Social History (Updated 05/13/24 @ 09:19 by Suzanna Sr CMA) Household Members: Spouse and Children Housing: House Are you a primary healthcare financial analyst to a significant other at home: No Do you presently have visiting nurse or other home services: No 75 years or older and lives alone: No Alcohol intake: never Patient Tobacco Use Status: Former Tobacco user e-Cigarette/Vaping Use: Never Used Second Hand Smoke Exposure: No service: No Current occupational status: unemployed Current occupation: [employer] Current occupational exposures/hazards: No Cognitive needs: No Hearing needs: No Vision needs: Yes (Glasses) Female Reproductive History Menstrual Date of last menstrual period: 08/04/24 Questionnaire PHQ-9 Over the last 2 weeks, how often have you been bothered by any of the following problems? 1. Little interest or pleasure in doing things: not at all 2. Feeling down, depressed, or hopeless: not at all 3. Trouble falling or staying asleep, or sleeping too much: not at all 4. Feeling tired or having little energy: not at all 5. Poor appetite or overeating: not at all 6. Feeling bad about yourself - or that you are a failure or have let yourself or your family down: not at all 7. Trouble concentrating on things, such as reading the newspaper or watching television: not at all 8. Moving or speaking so slowly that other people could have noticed. Or the opposite - being so fidgety or restless that you have been moving around a lot more than usual: not at all 9. Thoughts that you would be better off or of hurting yourself in some way: not at all Total score: 0 Depression Screening Interpretation: Negative Depression Screening Done: Yes 87617 - PHQ-9 Billing: Yes Source: Developed by Drs. Aries Massey, Jackie Browne, Jer Smyth and colleagues, with an educational blu from [employer]. Thrive Questionnaire Date Thrive assessed: 08/15/24 I am a: Patient What is your living situation today?: I choose not to answer this question Within the past 12 months, did the food you bought not last and you didn't have the money to get more?: I choose not to answer this question Within the past 12 months, did you worry whether your food would run out before you got money to buy more?: I choose not to answer this question Do you have trouble paying for medicines?: I choose not to answer this question Do you have trouble getting transportation to medical appointments?: I choose not to answer this question Do you have trouble paying your heating and electricity bill?: I choose not to answer this question Do you have trouble taking care of your child, family member or friend?: I choose not to answer this question Do you have trouble with day-to-day activities such as bathing, preparing meals, shopping, managing finances, etc.?: I choose not to answer this question Are you currently unemployed and looking for a job?: I choose not to answer this question Are you interested in more education?: I choose not to answer this question Please select the resources that you would like help with: None Currently or been in a relationship where the following occur: I choose not to answer THRIVE Score: 0 AUDIT C Alcohol Use Questionnaire (AUDIT-C) 1. How often do you have a drink containing alcohol?: Never Total Score: 0 DINESH-7 AMB Questionnaire DINESH-7 Date DINESH - 7 assessed: 08/15/24 Feeling nervous, anxious, or on edge: 0 = Not at all Not being able to stop or control worryin = Not at all Worrying too much about different things: 0 = Not at all Trouble relaxin = Not at all Being so restless that it is hard to sit still: 0 = Not at all Becoming easily annoyed or irritable: 0 = Not at all Feeling afraid as if something awful might happen: 0 = Not at all Total DINESH-7 score (0-4 normal; 5-9 mild; 10-14 moderate; 15-21 severe): 0 Source: Developed by Drs. Aries Massey, Jackie Browne, Jer Smyth and colleagues, with an educational blu from [employer]. DINESH-7 Assessment Billing DINESH-7 Assessment Tool: DINESH-7 Assessment [id number] Physical exam (Primary Care) Vital Signs: Last Vital Signs Temp 98.8 F 08/15/24 16:29 Pulse 78 08/15/24 16:29 Resp 16 08/15/24 16:29 BP 119/56 L 08/15/24 16:29 Pulse Ox 99 08/15/24 16:29 Oxygen Delivery Method Room Air 08/15/24 16:29 BMI result Body Mass Index 38.6 Tobacco/Smoking Status: Tobacco use Status Tobacco use date assessed 08/15/24 08/15/24 16:32 Patient Tobacco Use Status Former Tobacco user 08/15/24 16:32 e-Cigarette/Vaping Use Never Used 08/15/24 16:32 PHQ-9: PHQ-9 Score PHQ-9: Total score 0 08/15/24 16:38 Depression Screening Interpretation: Negative Thrive Assessment: Date of Thrive Assessment Date Thrive assessed 08/15/24 08/15/24 16:32 Currently or been in a relationship where the following occur: I choose not to answer Coding Level of Care Code Est Pt Prev Care 18-39y(07868) Diagnoses IFG (impaired fasting glucose) R73.01 Obesity, class 2 E66.812 Routine physical examination Z00.00 Cervicalgia M54.2 Plantar wart, left foot B07.0 Additional Codes DINESH-7 Assessment Billing - DINESH-7 Assessment Tool: DINESH-7 Assessment [id number] ([id number]) PHQ-9 - 15742 - PHQ-9 Billing: Yes ([id number]) Assessment & Plan Assessment & Plan (1) IFG (impaired fasting glucose): Code(s): R73.01 - Impaired fasting glucose Category: Medical (2) Obesity, class 2: Code(s): E66.812 - Obesity, class 2 (3) Routine physical examination: Code(s): Z00.00 - Encounter for general adult medical examination without abnormal findings Category: Medical (4) Cervicalgia: Code(s): M54.2 - Cervicalgia Category: Medical (5) Plantar wart, left foot: Code(s): B07.0 - Plantar wart Category: Medical Plan Patient is seen today for a routine physical. As part of this visit we reviewed the following issues, which are considered and essential part of preventative health in this age group: - Breast Cancer screening - Annual Automotive Parts Counter Person exam - Blood pressure screening - Cholesterol screening - Osteoporosis prevention including calcium/vitamin D intake, weight bearing exercise & smoking cessation - Nutritional and exercise counseling - Counseling of injury prevention including fire prevention, smoke alarms and seat belt usage - Screening for depression - Education about skin cancer - Recommendations about immunizations - Recommendation of an eye exam - Screening for substance abuse Patient will continue Zepbound 5 mg weekly and lifestyle modifications. She is following a healthy diet. She is making sure she is getting good protein intake. Recommended using a body composition scale to track weight loss. The medication is still medically necessary due to BMI 35.2 and impaired fasting glucose. Refer to dermatology for treatment of warts. X-ray of the cervical spine ordered. To consider referral to physical therapy pending results. Declines medications. Follow up in 3 months for a medication review. Orders: Orders XR cervical spine 4V Today M54.2 - Cervicalgia Lipid Panel Today E78.5 - Hyperlipidemia, unspecified, R73.01 - Impaired fasting glucose, Z13.6 - Encounter for screening for cardiovascular disorders Basic Metabolic Panel Today R73.01 - Impaired fasting glucose, Z13.6 - Encounter for screening for cardiovascular disorders Cortisol Random Today R73.01 - Impaired fasting glucose, Z13.6 - Encounter for screening for cardiovascular disorders Hemoglobin A1c Today E11.9 - Type 2 diabetes mellitus without complications, R73.01 - Impaired fasting glucose, Z13.6 - Encounter for screening for cardiova scular disorders Referrals Dermatology Referral B07.0 - Plantar wart
[2024-08-15 16:29] VITALS: BP 119/56; PULSE 78; RESP 16; TEMP 37.1; O2SAT 99; BMI 38.6
[2024-08-15 17:16] VITALS: BMI 35.2
== END 2024-08-15 17:09 | disposition home or self-care (01) ==
LOC: HO.HMCFM 16:17
PROVIDERS: PCP Physician Assistant Medical; Visit Provider Physician Assistant Medical
DX: Z00.00 Encounter for general adult medical examination without abnormal findings (principal); Z68.38 Body mass index [BMI] 38.0-38.9, adult; E66.812 Obesity, class 2; R73.01 Impaired fasting glucose; M54.2 Cervicalgia; B07.0 Plantar wart

== ENCOUNTER → 2024-08-15 16:16 | Outpatient (BNVA) | payer OTHER, SELFPAY | PROVIDERS: PCP Physician Assistant Medical; Visit Provider Physician Assistant Medical | DX: Z00.00 Encounter for general adult medical examination without abnormal findings (principal); E66.812 Obesity, class 2; F32.A Depression, unspecified; F41.9 Anxiety disorder, unspecified; M54.2 Cervicalgia; B07.0 Plantar wart; E78.5 Hyperlipidemia, unspecified; E11.9 Type 2 diabetes mellitus without complications; Z68.38 Body mass index [BMI] 38.0-38.9, adult | CPT/HCPCS: 96127; 99395 ==

== ENCOUNTER 2024-11-14 09:40 | Outpatient (REF) | payer OTHER, SELFPAY ==
--- OUTSIDE RECORDS SUMMARY | 2024-11-14 10:38 | XMS_ITS | Clinical Summary ---
Author Organization [facility] Address [address] [place] [address] Phone Care Team Providers Care Imcu Specialist Name Role Phone Unavailable Primary Care Provider Unavailabl e Immunizations Immunization Administration Dates Next Due DTaP 5 12/20/1994, 4,1993,04/09 HPV, Quadrivalent 07/22/2011,06/29/2009,02/20/20 09 Hep A, Adult 11/05/2014 Hep B, ped/adol 1993,1993,1993 Hib (PRP-T) 06/15/1994, 4,1993,04/09 IPV 04/04/2003, 4,1993,04/09 Influenza, injectable, trivalent 02/19/2009 MMR 08/03/2001,06/15/1994 Meningococcal Conj (Menactra) MCV4P 11/05/2014,0 07/07/2006 Td (adult) (MBL), 2 Lf tetan us toxoid, PF, adsorbed 04/04/2003 Tdap 09/17/2007 Varicella 04/04/2003 Family History Relation Name Status Comments Father Father: Alcohol ism Maternal Grandfather Materna l grandfather: Cancer -bladder Maternal Grandmother Materna l grandmother: Diabetes mellitus Mother Mother: ADD/ADH D, anxiety, Alcoholism, Depression Paternal Grandmother Paterna l grandmother: alzheimers Social History Tobacco Use Types Packs/Day Years Used Date Smoking Tobacco: Former Comments:Former smoker Comments Unknown Sex and Gender Information Value Date Recorded Sex Assigned at Not on file Legal Sex Female 4:57 PM EDT Gender Identity Not on file Sexual Orientation Not on file Last Filed Vital Signs Vital Sign Reading Time Taken Comments Blood Pressure 124/79 11/06/2014 12:00 AM EDT Pulse 77 11/06/2014 12:00 AM EDT Temperature 37.4 ??C (99.4 ??F) 11/06/2014 1 2:00 AM EDT Respiratory Rate - - Oxygen Saturation 95% 07/08/2014 12: 00 AM EST Inhaled Oxygen Concentration - - Weight 77.5 kg (170 lb 12.8 oz) 015 12:00 AM EDT Height 166.4 cm (5' 5.5 ) 11/05/2014 12 :00 AM EDT Body Mass Index 27.99 11/05/2014 12:00 AM EDT Plan of Treatment Health Maintenance Due Date Last Done Comments Varicella Vaccines (2 of 2 - 2-dose childhood series) 06/27/2003 04/04/2003 DTaP,Tdap,and Td Vaccines (7 - Td or Tdap) 09/16/2017 09/17/2007, 04/04/2003, 12/20/1994, Additional history exists Influenza Vaccines (#1) 2024 02/19/2009 COVID-19 Vaccine ( season) 2024 Hepatitis B Vaccines Completed 1993, 1993, 1993 HIB Vaccines Completed 06/15/1994, 08/04, 1993, Additional history exists MMR Vaccines Completed 08/03/2001, 06/15/1994 IPV Vaccines Completed 04/04/2003, 08/04, 1993, Additional history exists HPV Vaccines Completed 07/22/2011, 06/06, 02/19/2009 Hepatitis A Vaccines Aged Out 11/05/2014 No long er eligible based on patient's age to complete this topic Meningococcal Vaccine Aged Out 11/05/2014, 007 No longer eligible based on patient's age to complete this topic Men B Vaccine Aged Out No longer elig ible based on patient's age to complete this topic Pneumococcal Vaccine Aged Out No long er eligible based on patient's age to complete this topic Procedures * Due to [place] state law, this organization might not be sharing sensitive test results. Procedure Name Priority Date/Time Associated Diagnosis Comments CHLAMYDIA AND GONORRHEA, AMPLIFIED Routine 11/19/2013 9:26 AM EDT from Last 3 Months or Most Recently Relevant to Health Maintenance Results * Due to [place] state law, this organization might not be sharing sensitive test results. * Chlamydia and Gonorrhoea, Amplified (11/19/2013 9:26 AM EDT) Pathologist [facility] URINE GC AMP PROBE NEGATIVE [facility] Comment: NO NEISSERIA GONORRHOEAE RNA DETECTED IN THIS PATIENT'S SAMPLE. (REFERENCE RANGE/NORMAL VALUE: NOT DETECTED) SPECIMEN SOURCE IS NOT FDA APPROVED NOTE: This test uses associate store manager-mediated amplification method to detect rRNA from C.Trachomatis and N.Gonorrhoeae. A negative result does not preclude infection. In the case of a negative urine result, testing of an endocervical(female) or urethral(male) specimen is recommended if there is high clinical suspicion of infection. The performance characteristics of this test have not been evaluated in children. The Aptima Combo2 assay is not intended for the evaluation of suspected sexual abuse or for other medico-legal indications. The ordering provider should assess if the patient had consensual sex without risk of sexual abuse. Consult the [facility] if needed. Contact phone number . Therapeutic failure or success cannot be determined with the Aptima Combo2 assay since nucleic acid may persist following appropriate antimicrobial therapy. The Centers for Disease Control and Prevention (CDC) recommends confirmatory retesting using culture or a different nucleic acid amplification test when positive results occur, if indicated. Testing performed or reported by [facility], a Service of [facility], [address] [place] [address] Lawson Andre, Gunner'S Mate URINE CHLAMYDIA AMP PROBE NEGATIVE [facility] Comment: NO CHLAMYDIA TRACHOMATIS RNA DETECTED IN THIS PATIENT'S SAMPLE. (REFERENCE RANGE/NORMAL VALUE: NOT DETECTED) SPECIMEN SOURCE IS NOT FDA APPROVED 11/19/2013 9:26 AM EDT Narrative [facility] - 11/19/2013 9:26 AM EDT URINE CHLAMYDIA GC AMP PROBE Adina Cooper RESIDENTIAL SALES MANAGER LAB MICROBIOLOGY - GENERA L ORDERABLES Final Result [facility] [address] [place] [address] [place] [address], [place] from Last 3 Months or Most Recently Relevant to Health Maintenance
[2024-11-14 11:33] LABS: Estimated Average Glucose 100 mg/dL; Hemoglobin A1c % 5.1 % (<6.0)
[2024-11-14 11:48] LABS: Anion Gap 9 (12-20); Blood Urea Nitrogen 7 mg/dL (9-16); Carbon Dioxide 27 mmol/L (22-29); Chloride 107 mmol/L (96-108); Cholesterol 162 mg/dL (<200); Estimated Glomerular Filt Rate > 60; Glucose Random 85 mg/dL (60-115); HDL Cholesterol 40 mg/dL (>40); LDL Cholesterol Calculated 108 mg/dL (<100); Sodium 139 mmol/L (135-145); Triglycerides 70 mg/dL (<150)
[2024-11-14 11:58] LABS: Cortisol Random 5.2 ug/dL
== END 2024-11-14 09:41 | disposition home or self-care (01) ==
LOC: HO.WFDLDS 09:40
PROVIDERS: Visit Provider Physician Assistant Medical
DX: E78.5 Hyperlipidemia, unspecified (principal); R73.01 Impaired fasting glucose; Z13.6 Encounter for screening for cardiovascular disorders; E11.9 Type 2 diabetes mellitus without complications
CPT/HCPCS: 36415; 80048; 80061; 82533; 83036

== ENCOUNTER 2024-11-18 09:15 | Outpatient (AMB) | payer OTHER, SELFPAY ==
--- NOTE | 2024-11-18 09:19 | MHC.PC.OV ---
Vital Signs 11/18/24 09:22 Height 5 ft 6 in Weight 216 lb BMI 34.9 BP 104/68 Blood Pressure Location Rt brachial Position Sitting Respiration 16 Pulse 75 Temp 97.9 F Temp Source Temporal Artery Scan Pulse Oximetry (%) 99 Oxygen Delivery Method Room Air Intake Visit Reasons: med review Intake Note: Abimbola presents in the office today for a lab review. Allergies amoxicillin [AMOXICILLIN] Allergy (Unknown, Verified 11/18/24 09:21) UKN, hives Sulfa (Sulfonamide Antibiotics) Allergy (Unknown, Verified 11/18/24 09:21) hives gabapentin Adverse Reaction (Severe, Verified 11/18/24 09:21) Agitated Tobacco use date assessed: 11/18/24 Dental Screening Dental Screen Date: 11/18/24 Did you have a dental visit in the last 12 months?: No Did you have a dental problem in the last 6 months where you did not have access to dental care?: No Was dental information given to patient?: Patient declined HPI HPI Comments History of Present Illness Details This is a 29-year-old female with a past medical history of obesity, impaired fasting glucose, depression with anxiety, vertigo, panic attacks and asthma presenting for follow up. The patient is doing well on Zepbound 5 mg weekly. She is able to make healthier choices even when she is busy. She is making sure to supplement with a protein drink if she is not hungry or if she is on the go. Her weight is down to 216 lb today down from 245 lb in February. This is despite having to stop the medication due to an insurance issue and restarting it about a month ago. She did have a significant appetite decrease when she restarted, but she is doing okay now. Patient noticed a lump behind her left knee about a year ago. She believes it is getting larger, and she is requesting evaluation. It is not painful. No history of trauma. Patient reports that she saw Gastroenterology as a teenager for episodes of nausea and vomiting that were thought to be due to anxiety. She has had for within the past month which is more frequent than usual for her. She describes episodes is feeling a pain in her upper abdomen that develops over a day or 2 resulting in nausea and eventually vomiting. Denies acid reflux, unexplained weight loss. It predated use of Zepbound, and the symptoms do not occur within 48 hours of administering the injection. At 1 point it was thought she could have a food allergy, but she did not follow up with the cocoa mill operator or an hr intern. No hives or difficulty breathing. We reviewed her blood work from 11/14/2024 which showed that her A1c is 5.1%, renal function is normal, glucose normal at 85, LDL cholesterol 108, HDL 40, cholesterol 162 and triglycerides 70. Liver function tests were normal 12/30/2023. 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 When she was much younger she was stung by multiple bees or hornets and developed difficulty breathing, swelling of her throat and itching. She does not have an EpiPen. She has been stung by an insect since then, but she does not know if it was the same type that caused the reaction. ROS: Constitutional: No unexplained weight loss, fever, chills, fatigue or night sweats. Respiratory: No shortness of breath, cough or sputum production. Cardiovascular: No chest pain, chest pressure or chest discomfort. No palpitations or pedal edema. Gastrointestinal: No diarrhea, blood in stools, coffee-ground emesis. See HPI. Neurologic: No headache, dizziness, syncope, unilateral weakness, ataxia, numbness or tingling in the extremities. Hematologic/Lymphatics: No bleeding or bruising. Endocrine: No cold or heat intolerance. No polyuria or polydipsia. Psychiatric: No SI/HI. Physical exam: Constitutional: Alert, in no distress. Neck: Supple, Full range of motion. No lymphadenopathy. Respiratory: Clear to auscultation. Cardiovascular: S1 S2 regular. No murmurs. Gastrointestinal: Abdomen soft, non-tender, non-distended. Normal bowel sounds. No palpable masses. Neurologic: No focal neurological deficits. Musculoskeletal: Normal flexion and extension of both knees. No erythema or warmth. There is a palpable, rubbery, approximately 2 cm mass superior and medial to the popliteal fossa of the left knee with a smaller approximately 1 cm mass adjacent to it. They are nontender. Extremities: Warm and well perfused. No clubbing, cyanosis or edema. Intact peripheral pulses bilaterally. Psychiatric: Normal mood and affect [facility] Medical History (Updated 11/18/24 @ 16:07 by DEVIN Montalvo) Mass of left lower leg Nausea and vomiting Nausea and vomiting after administration of anesthetic agent Hymenoptera allergy Routine physical examination Screening for cardiovascular condition Cervicalgia Plantar wart, left foot Abnormal CBC IFG (impaired fasting glucose) Obesity Depression with anxiety Syncope Vertigo Anemia Surgical History History of microdiscectomy History of 3 sections Family History Mother Substance use disorder Mental health disorder Father Substance use disorder Mental health disorder Social History (Updated 11/18/24 @ 09:22 by Liana Hunt MA) Household Members: Spouse and Children Housing: House Are you a primary nursing care attendant to a significant other at home: No Do you presently have visiting nurse or other home services: No Alcohol intake: never Patient Tobacco Use Status: Former Tobacco user e-Cigarette/Vaping Use: Never Used Second Hand Smoke Exposure: No service: No Current occupational status: unemployed Current occupation: [employer] Current occupational exposures/hazards: No Cognitive needs: No Hearing needs: No Vision needs: Yes (Glasses) Questionnaire Thrive Questionnaire Date Thrive assessed: 08/13/24 I am a: Patient What is your living situation today?: I choose not to answer this question Within the past 12 months, did the food you bought not last and you didn't have the money to get more?: I choose not to answer this question Within the past 12 months, did you worry whether your food would run out before you got money to buy more?: I choose not to answer this question Do you have trouble paying for medicines?: I choose not to answer this question Do you have trouble getting transportation to medical appointments?: I choose not to answer this question Do you have trouble paying your heating and electricity bill?: I choose not to answer this question Do you have trouble taking care of your child, family member or friend?: I choose not to answer this question Do you have trouble with day-to-day activities such as bathing, preparing meals, shopping, managing finances, etc.?: I choose not to answer this question Are you currently unemployed and looking for a job?: I choose not to answer this question Are you interested in more education?: I choose not to answer this question Please select the resources that you would like help with: None Currently or been in a relationship where the following occur: I choose not to answer THRIVE Score: 0 DINESH-7 AMB Questionnaire DINESH-7 Date DINESH - 7 assessed: 08/15/24 Source: Developed by Drs. Aries Massey, Jackie Browne, Jer Smyth and colleagues, with an educational blu from [employer]. Physical exam (Primary Care) Vital Signs: Last Vital Signs Temp 97.9 F 11/18/24 09:22 Pulse 75 11/18/24 09:22 Resp 16 11/18/24 09:22 BP 104/68 11/18/24 09:22 Pulse Ox 99 11/18/24 09:22 Oxygen Delivery Method Room Air 11/18/24 09:22 BMI result Body Mass Index 34.9 Tobacco/Smoking Status: Tobacco use Status Tobacco use date assessed 11/18/24 11/18/24 09:26 Patient Tobacco Use Status Former Tobacco user 11/18/24 09:22 e-Cigarette/Vaping Use Never Used 11/18/24 09:22 Thrive Assessment: Date of Thrive Assessment Date Thrive assessed 08/13/24 11/18/24 09:21 Currently or been in a relationship where the following occur: I choose not to answer Coding Level of Care Code Est Pt Level 4 (54867) Complex EM visit Add On G2211 Diagnoses Nausea and vomiting R11.2 Class 2 severe obesity due to excess calories with serious comorbidity and body mass index (BMI) of 39.0 to 39.9 in adult E66.01; Z68.39 Obesity type: due to excess calories Obesity classification: adult class 2 (BMI 35 - 39.9) Serious obesity comorbidity presence: with serious comorbidity Body mass index: BMI 39.0-39.9 Hymenoptera allergy Z91.038 Mass of left lower leg R22.42 Assessment & Plan Assessment & Plan (1) Nausea and vomiting: Code(s): R11.2 - Nausea with vomiting, unspecified Category: Medical Plan: Differential includes gastritis, GERD, gallstones, anxiety, adverse food reaction and less likely autoimmune or neoplastic process. Proceed with the additional labs today including CBC, lipase, amylase and H pylori stool antigen testing. Refer to Gastroenterology. Abdominal ultrasound ordered. Keep food diary to keep track of symptoms. Consider trial of omeprazole once results are back. (2) Obesity: Code(s): E66.9 - Obesity, unspecified Category: Medical Qualifiers: Obesity type: due to excess calories Obesity classification: adult class 2 (BMI 35 - 39.9) Serious obesity comorbidity presence: with serious comorbidity Body mass index: BMI 39.0-39.9 Qualified Code(s): E66.01 - Morbid (severe) obesity due to excess calories; Z68.39 - Body mass index [BMI] 39.0-39.9, adult Plan: Continue lifestyle modifications and Zepbound 5 mg weekly. GI symptoms predate medication use. (3) Hymenoptera allergy: Code(s): Z91.038 - Other insect allergy status Category: Medical Plan: Prescribed EpiPen and referred to Allergy and immunology. Reviewed treatment of allergic reactions. If two body systems involved or severe symptoms administer EpiPen and called 911. For mild symptoms like hives or itching around a sting use 50 mg of Benadryl or Zyrtec 10 mg. If reaction progresses administer epinephrine and call 911. (4) Mass of left lower leg: Code(s): R22.42 - Localized swelling, mass and lump, left lower limb Category: Medical Plan: Ultrasound ordered for initial evaluation. Plan Follow up in 2 months. Orders: Orders H pylori Ag Stool Today R11.2 - Nausea with vomiting, unspecified Liver Panel Today R11.2 - Nausea with vomiting, unspecified Complete Blood Count Auto Diff Today R11.2 - Nausea with vomiting, unspecified US abdomen complete Today R11.2 - Nausea with vomiting, unspecified Lipase Today R11.2 - Nausea with vomiting, unspecified Amylase Today R11.2 - Nausea with vomiting, unspecified US Extremity Nonvas Limited LT Today E66.01 - Morbid (severe) obesity due to excess calories, R22.42 - Localized swelling, mass and lump, left lower limb, Z68.39 - Body mass index [BMI] 39.0-39.9, adult, Z91.038 - Other insect allergy status Referrals Allergy & Immunology Referral Z91.038 - Other insect allergy status Gastroenterology Referral R11.2 - Nausea with vomiting, unspecified Medications: New epinephrine (EpiPen) for 2 doses 0.3 mg (0.3 mL) IM Q10M PRN 2 ea 0RF anaphylaxis
[2024-11-18 09:22] VITALS: BP 104/68; PULSE 75; RESP 16; TEMP 36.6; O2SAT 99; BMI 34.9
--- OUTSIDE RECORDS SUMMARY | 2024-11-18 09:56 | XMS_ITS | Clinical Summary ---
Author Organization [facility] Address [address] [place] [address] Phone Care Team Providers Care Planned Giving Officer Name Role Phone Unavailable Primary Care Provider [...] complete this topic Procedures * Due to [place] state law, this organization might not be sharing sensitive test results. Procedure Name Priority Date/Time Associated Diagnosis Comments CHLAMYDIA AND GONORRHEA, AMPLIFIED Routine 11/19/2013 9:26 AM EDT from Last 3 Months or Most Recently Relevant to Health Maintenance Results * Due to [place] state law, this organization might not be sharing sensitive test results. * Chlamydia and Gonorrhoea, Amplified (11/19/2013 9:26 AM EDT) Pathologist [facility] URINE GC AMP PROBE NEGATIVE [facility] Comment: NO NEISSERIA GONORRHOEAE RNA DETECTED IN THIS PATIENT'S SAMPLE. (REFERENCE RANGE/NORMAL VALUE: NOT DETECTED) SPECIMEN SOURCE IS NOT FDA APPROVED NOTE: This test uses seed specialist-mediated amplification method to detect rRNA from C.Trachomatis [...] without risk of sexual abuse. Consult the [facility] if needed. Contact phone number . Therapeutic failure or success cannot be determined with the Aptima Combo2 assay since nucleic acid may persist following appropriate antimicrobial therapy. The Centers for Disease Control and Prevention (CDC) recommends confirmatory retesting using culture or a different nucleic acid amplification test when positive results occur, if indicated. Testing performed or reported by [facility], a Service of [facility], [address] [place] [address] Lawson Andre, Supervisor Framing Mill URINE CHLAMYDIA AMP PROBE NEGATIVE [facility] Comment: NO CHLAMYDIA TRACHOMATIS RNA DETECTED IN THIS PATIENT'S SAMPLE. (REFERENCE RANGE/NORMAL VALUE: NOT DETECTED) SPECIMEN SOURCE IS NOT FDA APPROVED 11/19/2013 9:26 AM EDT Narrative [facility] - 11/19/2013 9:26 AM EDT URINE CHLAMYDIA GC AMP PROBE Adina Cooper LADIES ATTENDANT LAB MICROBIOLOGY - GENERA L ORDERABLES Final Result [facility] [address] [place] [address] [place] [address], [place] from Last 3 Months or Most Recently Relevant to Health Maintenance
== END 2024-11-18 10:06 | disposition home or self-care (01) ==
LOC: HO.HMCFM 09:16
PROVIDERS: PCP Physician Assistant Medical; Visit Provider Physician Assistant Medical
DX: R11.2 Nausea with vomiting, unspecified (principal); E66.01 Morbid (severe) obesity due to excess calories; Z68.39 Body mass index [BMI] 39.0-39.9, adult; Z91.038 Other insect allergy status; R22.42 Localized swelling, mass and lump, left lower limb

== ENCOUNTER → 2024-11-18 09:15 | Outpatient (BNVA) | payer OTHER, SELFPAY | PROVIDERS: PCP Physician Assistant Medical; Visit Provider Physician Assistant Medical | DX: R11.2 Nausea with vomiting, unspecified (principal); E66.01 Morbid (severe) obesity due to excess calories; Z68.39 Body mass index [BMI] 39.0-39.9, adult; R22.42 Localized swelling, mass and lump, left lower limb; Z91.038 Other insect allergy status | CPT/HCPCS: 99212 ==

== ENCOUNTER 2024-11-18 10:37 | Outpatient (REF) | payer OTHER, SELFPAY ==
[2024-11-18 14:02] LABS: MANUAL DIFF FLAG NO
[2024-11-18 14:12] LABS: Basophils Percent Auto 0.3 % (0-2); Eosinophils Absolute Auto 0.2 X10*3/uL (0.0-0.4); Eosinophils Percent Auto 1.7 % (0-4); Hematocrit 38.9 % (37.0-47.0); Hemoglobin 12.2 g/dl (12.0-16.0); Imm Gran Abs Auto 0.03 X10*3/uL (0.00-0.03); Imm Gran Pct Auto 0.3 % (0.0-0.4); Lymphocytes Absolute Auto 2.5 X10*3/uL (1.2-4.9); Lymphocytes Percent Auto 29.3 % (20-40); Mean Corpuscular HGB Conc 31.4 g/dl (31.0-35.0); Mean Corpuscular Hemoglobin 26.2 pg (27.0-33.0); Mean Corpuscular Volume 83.7 fL (80.0-98.0); Mean Platelet Volume 8.8 fL (9.4-12.3); Monocytes Absolute Auto 0.5 X10*3/uL (0.1-1.2); Monocytes Percent Auto 5.3 % (2-11); Neutrophils Absolute Auto 5.4 x10*3/uL (2.0-8.3); Neutrophils Percent Auto 63.1 % (45-73); Platelet Count 439 X10*3/uL (160-400); Red Blood Count 4.65 X10*6/uL (4.20-5.50); Red Cell Distribution Width 14.1 % (11.0-16.0); White Blood Count 8.6 X10*3/uL (4.8-10.8)
[2024-11-18 14:21] LABS: Alanine Aminotransferase 14 U/L (0-31); Albumin Level 4.5 g/dL (3.5-5.0); Alkaline Phosphatase 69 U/L (39-117); Amylase 20 U/L (28-100); Aspartate Amino Transferase 20 U/L (5-31); Bilirubin Direct 0.1 mg/dL (0.0-0.5); Bilirubin Total 0.3 mg/dL (0.0-1.0); Lipase 16 U/L (8-78); Total Protein 7.3 g/dL (6.5-8.0)
== END 2024-11-18 10:38 | disposition home or self-care (01) ==
LOC: HO.WFDLDS 10:37
PROVIDERS: Visit Provider Physician Assistant Medical
DX: R11.2 Nausea with vomiting, unspecified (principal)
CPT/HCPCS: 36415; 80076; 82150; 83690; 85025

== ENCOUNTER 2024-11-21 13:38 | Outpatient (REF) | payer OTHER, SELFPAY ==
--- OUTSIDE RECORDS SUMMARY | 2024-11-21 14:48 | XMS_ITS | Clinical Summary ---
Author Organization [facility] Address [address] [place] [address] Phone Care Team Providers Care Mechanical Handyman Name Role Phone Unavailable Primary Care Provider [...] 77 11/06/2014 12:00 AM EDT Temperature 37.4 C (99.4 F) 11/06/2014 12:00 AM EDT Respiratory Rate - - Oxygen [...] complete this topic Procedures * Due to [place] state law, this organization might not be sharing sensitive test results. Procedure Name Priority Date/Time Associated Diagnosis Comments CHLAMYDIA AND GONORRHEA, AMPLIFIED Routine 11/19/2013 9:26 AM EDT from Last 3 Months or Most Recently Relevant to Health Maintenance Results * Due to [place] state law, this organization might not be sharing sensitive test results. * Chlamydia and Gonorrhoea, Amplified (11/19/2013 9:26 AM EDT) [facility] URINE GC AMP PROBE NEGATIVE [facility] Comment: NO NEISSERIA GONORRHOEAE RNA DETECTED IN THIS PATIENT'S SAMPLE. (REFERENCE RANGE/NORMAL VALUE: NOT DETECTED) SPECIMEN SOURCE IS NOT FDA APPROVED NOTE: This test uses coordinate measuring machine programmer-mediated amplification method to detect rRNA from C.Trachomatis [...] without risk of sexual abuse. Consult the [facility] if needed. Contact phone number . Therapeutic failure or success cannot be determined with the Aptima Combo2 assay since nucleic acid may persist following appropriate antimicrobial therapy. The Centers for Disease Control and Prevention (CDC) recommends confirmatory retesting using culture or a different nucleic acid amplification test when positive results occur, if indicated. Testing performed or reported by [facility], a Service of [facility], [address] [place] [id number] Lawson Andre, Special Shopper URINE CHLAMYDIA AMP PROBE NEGATIVE [facility] Comment: NO CHLAMYDIA TRACHOMATIS RNA DETECTED IN THIS PATIENT'S SAMPLE. (REFERENCE RANGE/NORMAL VALUE: NOT DETECTED) SPECIMEN SOURCE IS NOT FDA APPROVED 11/19/2013 9:26 AM EDT Narrative [facility] - 11/19/2013 9:26 AM EDT URINE CHLAMYDIA GC AMP PROBE us Adina Cooper NP LAB MICROBIOLOGY - GENERA L ORDERABLES Final Result [facility] [address] [id number], [place] from Last 3 Months or Most Recently Relevant to Health Maintenance
== END 2024-11-21 13:39 | disposition home or self-care (01) ==
LOC: HO.LNP 13:38
PROVIDERS: Visit Provider Physician Assistant Medical
DX: R11.2 Nausea with vomiting, unspecified (principal)
CPT/HCPCS: 87338

== ENCOUNTER 2025-01-03 08:29 | Outpatient (REF) | payer OTHER, SELFPAY ==
--- NOTE | ~2025-01-03 | US_ITS ---
CLINICAL HISTORY: R11.2 - Nausea with vomiting, unspecified US abdomen complete with color Doppler Comparison: None Findings: The visualized pancreas, aorta, and inferior vena cava are unremarkable. Liver normal size and echotexture. Right lobe 14.7 cm length. No focal hepatic masses. Common duct 3.0 mm diameter. Post cholecystectomy. No sonographic Wetzel sign. Right kidney normal size, 11.4 cm in length. Normal cortical width and echotexture. No solid or cystic renal masses. No nephrolithiasis. No hydronephrosis. Left kidney normal, 10.4 cm in length. Normal cortical width and echotexture. No solid or cystic renal masses. No nephrolithiasis. No hydronephrosis. Spleen measures 10.4 cm. No splenic masses. No ascites. No lymphadenopathy. Impression: 1. Post cholecystectomy in a otherwise normal abdominal ultrasound. This document has been electronically signed by: Primo Medley MD on 01/03/2025 10:29:45
--- NOTE | ~2025-01-03 | US_ITS ---
CLINICAL HISTORY: R22.42 - Localized swelling, mass and lump, left lower limb US left lower extremity nonvascular Comparison: None Findings: Sonographic evaluation in the area of clinical concern left posterior distal thigh showed no discrete masses, shadowing or calcifications, or fluid collections within the soft tissues. Impression: No sonographic correlate to the area of clinical concern left distal thigh posteriorly This document has been electronically signed by: Primo Medley MD on 01/03/2025 11:36:30
--- OUTSIDE RECORDS SUMMARY | 2025-01-03 08:40 | XMS_ITS | Clinical Summary ---
Author Organization [facility] Address [address] [place] [address] Phone Care Team Providers Care Hair Worker Name Role Phone Unavailable Primary Care Provider [...] 09/16/2017 09/17/2007, 04/04/2003, 12/20/1994, Additional history exists COVID-19 Vaccine ( season) 2024 Influenza Vaccines (#1) 2025 02/19/2009 Hepatitis B Vaccines Completed 1993, 1993, 1993 [...] and Gonorrhoea, Amplified (11/19/2013 9:26 AM EDT) [facility] URINE GC AMP PROBE NEGATIVE [facility] Comment: NO NEISSERIA GONORRHOEAE RNA DETECTED IN THIS PATIENT'S SAMPLE. (REFERENCE RANGE/NORMAL VALUE: NOT DETECTED) SPECIMEN SOURCE IS NOT FDA APPROVED NOTE: This test uses sider-mediated amplification method to detect rRNA from C.Trachomatis [...] without risk of sexual abuse. Consult the [facility] if needed. Contact phone number . Therapeutic failure or success cannot be determined with the Aptima Combo2 assay since nucleic acid may persist following appropriate antimicrobial therapy. The Centers for Disease Control and Prevention (CDC) recommends confirmatory retesting using culture or a different nucleic acid amplification test when positive results occur, if indicated. Testing performed or reported by [facility], a Service of [facility], [address] [place] [id number] Lawson Andre, Shot Lighter URINE CHLAMYDIA AMP PROBE NEGATIVE [facility] Comment: NO CHLAMYDIA TRACHOMATIS RNA DETECTED IN THIS PATIENT'S SAMPLE. (REFERENCE RANGE/NORMAL VALUE: NOT DETECTED) SPECIMEN SOURCE IS NOT FDA APPROVED 11/19/2013 9:26 AM EDT Narrative [facility] - 11/19/2013 9:26 AM EDT URINE CHLAMYDIA GC AMP PROBE us Adina Cooper NP LAB MICROBIOLOGY - GENERA L ORDERABLES Final Result [facility] [address] [id number], [place] from Last 3 Months or Most Recently Relevant to Health Maintenance
== END 2025-01-03 08:30 | disposition home or self-care (01) ==
LOC: HO.US 08:29
PROVIDERS: PCP Physician Assistant Medical; Visit Provider Physician Assistant Medical
DX: Z91.038 Other insect allergy status (principal); R22.42 Localized swelling, mass and lump, left lower limb; E66.01 Morbid (severe) obesity due to excess calories; Z68.39 Body mass index [BMI] 39.0-39.9, adult; R11.2 Nausea with vomiting, unspecified
CPT/HCPCS: 76700; 76882

== ENCOUNTER → 2025-01-03 08:34 | Outpatient (BNV) | payer OTHER, SELFPAY | PROVIDERS: PCP Physician Assistant Medical; Visit Provider Radiology Diagnostic Radiology | DX: R11.2 Nausea with vomiting, unspecified (principal); R22.42 Localized swelling, mass and lump, left lower limb; Z90.5 Acquired absence of kidney | CPT/HCPCS: 76700; 76882 ==

== ENCOUNTER 2025-03-06 08:58 | Outpatient (AMB) | payer OTHER, SELFPAY ==
--- NOTE | 2025-03-06 09:05 | A.OFFPC_ITS ---
Vital Signs 03/06/25 09:11 Height 5 ft 6 in Weight 217 lb BMI 35.0 BP 110/72 Blood Pressure Location Rt brachial Position Sitting Respiration 16 Pulse 82 Pulse Source Pulse Oximeter Temp 98.3 F Temp Source Temporal Artery Scan Pulse Oximetry (%) 99 Oxygen Delivery Method Room Air Intake Visit Reasons: recheck GI/leg lump Intake Note: Abimbola presents in the office today for a follow up to GI and a lump on her leg. Allergies amoxicillin (AMOXICILLIN) Allergy (Unknown, Verified 03/06/25 09:07) UKNfareed Sulfa (Sulfonamide Antibiotics) Allergy (Unknown, Verified 03/06/25 09:07) hives gabapentin Adverse Reaction (Severe, Verified 03/06/25 09:07) Agitated Tobacco use date assessed: 03/06/25 Dental Screening Dental Screen Date: 03/06/25 HPI HPI Comments History of Present Illness Details This is a 30-year-old female with a past medical history of obesity, impaired fasting glucose, depression with anxiety, vertigo, panic attacks and asthma presenting for follow up. She has not been taking tirzepatide. She was taking 5 mg a week. She presented with episodes of nausea and vomiting since being a teenager, and she reported that she thought they were due to anxiety. Subsequently she went to [facility] for symptoms in December, and she had her gallbladder removed. She followed up with her surgeon. They said she could restart Zepbound so she did and she developed recurrent nausea and vomiting. They thought it might be because she was off of it for awhile and then started at 5 mg instead of 2.5 mg. She has persistent stomach pains with certain foods that are ?harder to digest like tree nuts spinach. She saw an community outreach specialist, and she reports having negative skin testing for drug allergies (amoxicillin and Bactrim) and for foods including tree nuts and peanuts. She reports having a study at [facility] which showed slow gastric transit and an equivocal barium study swallow. She has an endoscopy scheduled next week. The lump behind her left knee resolved. Ultrasound was negative. ROS: Constitutional: No unexplained weight loss, fever, chills, fatigue or night sweats. Respiratory: No shortness of breath, cough or sputum production. Cardiovascular: No chest pain, chest pressure or chest discomfort. No palpitations or pedal edema. Gastrointestinal: No diarrhea, blood in stools, coffee-ground emesis. See HPI. Hematologic/Lymphatics: No bleeding or bruising. Endocrine: No cold or heat intolerance. No polyuria or polydipsia. Psychiatric: No SI/HI. Physical exam: Constitutional: Alert, in no distress. Neck: Supple, Full range of motion. No lymphadenopathy. Respiratory: Clear to auscultation. Cardiovascular: S1 S2 regular. No murmurs. Gastrointestinal: Abdomen soft, non-tender, upper abdomen is mildly tender. No rebound or guarding. Normal bowel sounds. No palpable masses. Musculoskeletal: No palpable leg masses on exam today. Extremities: Warm and well perfused. No clubbing, cyanosis or edema. Intact peripheral pulses bilaterally. Psychiatric: Normal mood and affect [facility] Medical History (Updated 03/06/25 @ 13:51 by DEVIN Montalvo) Dyspepsia Incidental Mass of left lower leg Nausea and vomiting Nausea and vomiting after administration of anesthetic agent Hymenoptera allergy Routine physical examination Screening for cardiovascular condition Cervicalgia Plantar wart, left foot Abnormal CBC IFG (impaired fasting glucose) Obesity Depression with anxiety Syncope Vertigo Anemia Surgical History History of microdiscectomy History of 3 sections Family History Mother Substance use disorder Mental health disorder Father Substance use disorder Mental health disorder Social History (Updated 03/06/25 @ 09:09 by Liana Hunt CMA) Household Members: Spouse and Children Housing: House Are you a primary direct care supervisor to a significant other at home: No Do you presently have visiting nurse or other home services: No 75 years or older and lives alone: No Alcohol intake: never Patient Tobacco Use Status: Former Tobacco user e-Cigarette/Vaping Use: Never Used Second Hand Smoke Exposure: No Use of substances other than those prescribed or required for medical reasons: No service: No Current occupational status: unemployed Current occupation: [employer] Current occupational exposures/hazards: No Cognitive needs: No Hearing needs: No Vision needs: Yes (Glasses) Questionnaire Thrive Questionnaire Date Thrive assessed: 08/13/24 I am a: Patient What is your living situation today?: I choose not to answer this question Within the past 12 months, did the food you bought not last and you didn't have the money to get more?: I choose not to answer this question Within the past 12 months, did you worry whether your food would run out before you got money to buy more?: I choose not to answer this question Do you have trouble paying for medicines?: I choose not to answer this question Do you have trouble getting transportation to medical appointments?: I choose not to answer this question Do you have trouble paying your heating and electricity bill?: I choose not to answer this question Do you have trouble taking care of your child, family member or friend?: I choose not to answer this question Do you have trouble with day-to-day activities such as bathing, preparing meals, shopping, managing finances, etc.?: I choose not to answer this question Are you currently unemployed and looking for a job?: I choose not to answer this question Are you interested in more education?: I choose not to answer this question Please select the resources that you would like help with: None Currently or been in a relationship where the following occur: I choose not to answer THRIVE Score: 0 DINESH-7 AMB Questionnaire DINESH-7 Date DINESH - 7 assessed: 08/15/24 Source: Developed by Drs. Aries Massey, Jackie Browne, Jer Smyth and colleagues, with an educational blu from [employer]. Physical exam (Primary Care) Vital Signs: Last Vital Signs Temp 98.3 F 03/06/25 09:11 Pulse 82 03/06/25 09:11 Resp 16 03/06/25 09:11 BP 110/72 03/06/25 09:11 Pulse Ox 99 03/06/25 09:11 Oxygen Delivery Method Room Air 03/06/25 09:11 BMI result Body Mass Index 35.0 Tobacco/Smoking Status: Tobacco use Status Tobacco use date assessed 03/06/25 03/06/25 09:09 Patient Tobacco Use Status Former Tobacco user 03/06/25 09:09 e-Cigarette/Vaping Use Never Used 03/06/25 09:09 Thrive Assessment: Date of Thrive Assessment Date Thrive assessed 08/13/24 03/06/25 09:06 Currently or been in a relationship where the following occur: I choose not to answer Coding Level of Care Code Est Pt Level 4 (58420) Complex EM visit Add On G2211 Diagnoses Dyspepsia R10.13 Hymenoptera allergy Z91.038 Class 2 severe obesity due to excess calories with serious comorbidity and body mass index (BMI) of 39.0 to 39.9 in adult E66.01; Z68.39 Obesity type: due to excess calories Obesity classification: adult class 2 (BMI 35 - 39.9) Serious obesity comorbidity presence: with serious comorbidity Body mass index: BMI 39.0-39.9 Nausea and vomiting R11.2 Assessment & Plan Assessment & Plan (1) Dyspepsia: Code(s): R10.13 - Epigastric pain Category: Medical (2) Hymenoptera allergy: Code(s): Z91.038 - Other insect allergy status Category: Medical (3) Obesity: Code(s): E66.9 - Obesity, unspecified Category: Medical Qualifiers: Obesity type: due to excess calories Obesity classification: adult class 2 (BMI 35 - 39.9) Serious obesity comorbidity presence: with serious comorbidity Body mass index: BMI 39.0-39.9 Qualified Code(s): E66.01 - Morbid (severe) obesity due to excess calories; Z68.39 - Body mass index [BMI] 39.0- 39.9, adult (4) Nausea and vomiting: Code(s): R11.2 - Nausea with vomiting, unspecified Category: Medical Plan I discussed your tirzepatide with her. I am concerned it could exacerbate an underlying issue. We agreed not to restarted at this time. She needs further diagnostic testing in the endoscopy completed with Gastroenterology. She will send me the results via the patient portal once this is completed. I wonder if she may have eosinophilic esophagitis as she reports increased symptoms with certain foods like tree nuts. Allergy skin was negative for IgE mediated allergy per patient. She will continue her efforts weight loss by following a healthy diet and exercising. Patient says it was recommended by her community outreach specialist to undergo challenges for venom an antibiotics, but she can not proceed with it at this time due to scheduling. Recommended strict avoidance and continuing to carry her EpiPen at all times.
[2025-03-06 09:11] VITALS: BP 110/72; PULSE 82; RESP 16; TEMP 36.8; O2SAT 99; BMI 35.0
--- OUTSIDE RECORDS SUMMARY | 2025-03-06 09:40 | XMS_ITS | Encounter Summary ---
Author Organization [facility] Address [address] [place] [phone] Phone Care Team Providers Care Top Polisher Name Role Phone Holly Cobb Primary Care Provide r Encounter Details Date Type Department Care Team ([facility] st Contact Info) Description 02/12/2025 Ancillary Orders Virtual Department [address] [place] [address] Leeann Villegas PA [address] [place] [address] H/O Crohn's disease (Primary Dx) Social History Tobacco Use Types Packs/Day Years Used Date Smoking Tobacco: Former Cigarettes Smokeless Tobacco: Former Comments:Quit at age 19 Alcohol Use Standard Drinks/Week Comments No 0 (1 standard drink = 0.6 oz pur e alcohol) Education Answer Date Recorded Are you interested in more education? Not on mike e 09/30/2022 Are you concerned about learning? Not on file 09/30/2022 No 09/30/2022 No 09/30/2022 Food Answer Date Recorded Within the past 6 months we worried whether our food would run out before we got money to buy more. Never True 01/26/2025 Within the past 6 months the food we bought just didn't last and we didn't have enough money to get more. Never True Residential Stability Answer Date Recor ded What is your housing situation today? I have rita sing 01/26/2025 How many times have you move d in the past 12 months? Zero (I did not move) 01/26/2025 Paying for Meds Answer Date Recorded Do you have trouble paying for medicines? No 01/26/2025 Paying Utility Bills Answer Date Record ed Do you have trouble paying your heating or elect ricity bill? No 01/26/2025 Transportation Answer Date Recorded Has the lack of transportati on kept you from medical appointments or from getting medications? No 01/26/2025 Digital Access Answer Date Recorded No 01/26/2025 Yes 01/26/2025 Do you have reliable internet access at home? Ye s 01/26/2025 Do you have a device (e.g., phone, tablet, computer) with a working camera? Yes 01/26/2025 Intimate Partner Violence Answer Date R ecorded Are you denied basic needs s uch as food, clothing, or medical care? No 01/26/2025 In the past 12 months have y ou been in a relationship with a person who hurts, threatens, or tries to control you? No 01/26/2025 Are you denied basic needs s uch as food, clothing, or medical care? No 01/26/2025 In the past 12 months have y ou been in a relationship with a person who hurts, threatens, or tries to control you? No 01/26/2025 Comments No Sex and Gender Information Value Date Recorded Sex Assigned at Female 06/12/2017 9:38 AM EST Legal Sex Female 8:57 PM EDT Gender Identity Female 06/12/2017 9:38 AM EST Sexual Orientation Straight 06/12/2017 9: 38 AM EST Occupation Industry Job Start Date Job End Date stay at home mom Not on file Not on file Not on file documented as of this encounter Plan of Treatment Upcoming Encounters Date Type Department Care Team (Late st Contact Info) Description 03/21/2025 10:30 AM EDT Office Visit [facility] [address] [place] [phone] Unknown, Unknown, Donovan Dos Santos MD [address] [place] [phone] 07/09/2025 9:00 AM EST Office Visit [facility] [address] [place] [phone] Unknown, Unknown, Leeann Joyce PA-C [address] [place] [address] [address] [phone] [email or web address] ([email or web address] Services documented as of this encounter Results * FL UGI SERIES DOUBLE CONTRAST AND SMALL BOWEL (02/21/2025 11:30 AM EDT) Anatomical Region Laterality Modality Abdomen Computed Radiogr aphy 02/21/2025 12:4 1 PM EDT Impressions 02/21/2025 12:58 PM EDT No evidence of small bowel obstruction. Moderate residual barium in the stomach which could reflect diminished motility, without discrete mass or large ulcer identified. A gastric emptying study may prove useful if clinically warranted. Examination is otherwise within normal limits when allowing for slightly suboptimal evaluation of the terminal ileum. FLUOROSCOPY TIME: 4 MINUTES 24 SECONDS NUMBER OF IMAGES: [id number] The examination was performed by RRA, Miguel Blankenship. Dr. Yunior Valladares was immediately available for portions of the procedure as needed. ATTESTATION: I, Yunior Valladares as teaching physician, have reviewed the images for this case and if necessary edited the report originally created by Miguel Blankenship. Narrative 02/21/2025 12:58 PM EDT FL DOUBLE CONTRAST UPPER GI SERIES WITH SMALL BOWEL FOLLOW THROUGH HISTORY: Rule out small bowel obstruction. Crohn's disease COMPARISON: US abdomen 01/29/2025. FINDINGS: Application Integrator view of the abdomen demonstrates a nondistended bowel gas pattern. Surgical clips are visualized in the right upper quadrant consistent with history of cholecystectomy ESOPHAGUS: Motility: No significant esophageal dysmotility. Mucosa: No gross mucosal pathology demonstrated fluoroscopically. Distensibility: Normal. GASTROESOPHAGEAL JUNCTION: No evidence of hiatal hernia. GASTROESOPHAGEAL REFLUX: None observed. STOMACH: Normally distensible and demonstrates normal contours and grossly mucosal pattern, with slightly suboptimal coating possibly related to fluid. There is moderate residual contrast present in the stomach at 1 hour and 15 minutes. No fluoroscopic evidence of a mass or discrete gastric ulcer. DUODENUM: Bulb and sweep are normal. Duodenal-jejunal junction is in the normal expected position. SMALL BOWEL FOLLOW THROUGH: Small bowel loops are normal in caliber and distribution. No evidence of fistula. Visualized distal duodenal, jejunal, and ileal mucosal fold patterns were unremarkable. No significant abnormality peristalsis motion.Patient could not wait in the department for optimal opacification of the terminal ileum but spot compression views of this region did not reveal gross mucosal pathology.The transit time was normal at approximately 1 hour and 15 minutes. Procedure Note Yunior Valladares MD - 02/21/2025 FL DOUBLE CONTRAST UPPER GI SERIES WITH SMALL BOWEL FOLLOW THROUGH HISTORY: Rule out small bowel obstruction. Crohn's disease COMPARISON: US abdomen 01/29/2025. FINDINGS: Application Integrator view of the abdomen demonstrates a nondistended bowel gas pattern.Surgical clips are visualized in the right upper quadrant consistent withhistory of cholecystectomy ESOPHAGUS: Motility: No significant esophageal dysmotility. Mucosa: No gross mucosal pathology demonstrated fluoroscopically. Distensibility: Normal. GASTROESOPHAGEAL JUNCTION: No evidence of hiatal hernia. GASTROESOPHAGEAL REFLUX: None observed. STOMACH: Normally distensible and demonstrates normal contours andgrossly mucosal pattern, with slightly suboptimal coating possibly relatedto fluid. There is moderate residual contrast present in the stomach at 1hour and 15 minutes. No fluoroscopic evidence of a mass or discretegastric ulcer. DUODENUM: Bulb and sweep are normal. Duodenal-jejunal junction is in thenormal expected position. SMALL BOWEL FOLLOW THROUGH: Small bowel loops are normal in caliber and distribution. No evidence offistula. Visualized distal duodenal, jejunal, and ileal mucosal foldpatterns were unremarkable. No significant abnormality peristalsismotion.Patient could not wait in the department for optimal opacificationof the terminal ileum but spot compression views of this region did notreveal gross mucosal pathology.The transit time was normal atapproximately 1 hour and 15 minutes. IMPRESSION: No evidence of small bowel obstruction. Moderate residual barium in thestomach which could reflect diminished motility, without discrete mass orlarge ulcer identified. A gastric emptying study may prove useful ifclinically warranted. Examination is otherwise within normal limits whenallowing for slightly suboptimal evaluation of the terminal ileum. FLUOROSCOPY TIME: 4 MINUTES 24 SECONDS NUMBER OF IMAGES: [id number] The examination was performed by Miguel HARDEN. Dr. Yunior Valladares wasimmediately available for portions of the procedure as needed. ATTESTATION: I, Yunior Valladares as teaching physician, have reviewed theimages for this case and if necessary edited the report originally createdby Miguel Blankenship. us Leeann CARNES [place] MISC Final Resul t documented in this encounter Visit Diagnoses Diagnosis H/O Crohn's disease- Primary H/O Crohn's disease documented in this encounter Care Teams Top Polisher Relationship Specialty Start Date End Date Holly Cobb PA [address] [place] [address] PCP - General Physician Compensation And Benefits Manager 11/23/24 documented as of this encounter Additional Source Comments The information contained in this document represents components of the legal health record. It is not the complete legal health record.[facility]
--- OUTSIDE RECORDS SUMMARY | 2025-03-06 09:40 | XMS_ITS | Encounter Summary ---
Author Organization [facility] Address [address] [place] [phone] Phone Care Team Providers Care Animal Pathology Teacher Name Role Phone Charles Alanis MD Primary Care Provider Holly Cobb Primary Care Provide r Encounter Details Date Type Department Care Team (Late st Contact Info) Description 08/27/2020 Procedure Pass [facility] Procedures [address] [place] [address] Social History Tobacco Use Types Packs/Day Years Used Date Smoking Tobacco: Former Cigarettes Smokeless Tobacco: Former Alcohol Use Standard Drinks/Week Comments No 0 (1 standard drink = 0.6 oz pur e alcohol) Comments No Sex and Gender Information Value [...] on file documented as of this encounter Functional Status * Calculated C-SSRS Risk Score (Lifetime/Recent) Answer Date of Assessment Author No Risk Indicated 08/28/2020 6:00 PM Jennifer Kaplan RN * [place] Suicide Severity Rating Scale (Screener/Recent Self-Report) Question Answer Date of Assessment Author 1. Wish to be (Past 1 Month) No 021 6:00 PM Farhana Kaplan RN 2. Non-Specific Active Suici izaiah Thoughts (Past 1 Month) No 08/28/2020 6:00 PM EDT Farhana Mixon RN 6. Suicidal Behavior (Lifetime) No 6:00 PM EDT Farhana Mixon RN documented as of this encounter Plan of Treatment Upcoming Encounters Date Type Department Care Team (Late st Contact Info) Description 03/21/2025 10:30 AM EDT Office Visit [facility] [address] [place] [address] Unknown, Unknown, Donovan Dos Santos MD [address] [address] 07/09/2025 9:00 AM EST Office Visit [facility] Gastroenterology [facility] [address] [place] [address] Unknown, Unknown, Leeann Joyce PA-C [address] [address] documented as of this encounter Visit Diagnoses Not on filedocumented in this encounter Additional Health Concerns Infection Onset Date Last Indicated Resolved Time CoV-Risk 05/15/2022 05/15/2022 05/26/2022 1:23 AM EST documented as of this encounter Care Teams Animal Pathology Teacher Relationship Specialty Start Date End Date Charles Alanis MD [address] [place] [address] PCP - General 06/10/20 11/22/24 Holly Cobb PA [address] [place] [id number] PCP - General Physician Patrol Judge 11/23/24 documented as of this encounter Additional Source Comments The information contained in this document represents components of the legal health record. It is not the complete legal health record.[facility]
--- OUTSIDE RECORDS SUMMARY | 2025-03-06 09:40 | XMS_ITS | Clinical Summary ---
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 01/26/2025 2:54 PM EDT URINALYSIS W/REFLEX URINE CULTURE STAT 01/26/2025 2:54 PM EDT URINE CULTURE Routine 01/26/2025 2:54 PM EDT LIPASE STAT 01/26/2025 11:30 AM EDT LFTS (HEPATIC PANEL) STAT 01/26/2025 11:30 AM EDT HCG, SERUM QUALITATIVE STAT 01/26/2025 11:30 AM EDT BASIC METABOLIC PANEL STAT 01/26/2025 11:30 AM EDT CBC AND DIFFERENTIAL STAT 01/26/2025 11:30 AM EDT AIRWAY PLACEMENT Routine 12/04/2024 8:49 AM EDT RI LAP,CHOLECYSTECTOMY 12/04/2024 8:44 AM EDT Gallbladder calculus without cholecystitis and no obstruction Special Needs Zepbound ld 11/06/2024 aware to hold prior to surgery ANATOMIC PATHOLOGY Routine 12/04/2024 12:00 AM EDT HEPATITIS C ANTIBODY, QUALITATIVE Routine 02/26/2020 11:19 AM EDT Multigravida, antepartum PAP TEST Routine 04/11/2017 12:00 AM EST from Last 3 Months or Most Recently Relevant to Health Maintenance Results * FL UGI SERIES DOUBLE CONTRAST [...] Crohn's disease COMPARISON: US abdomen 01/29/2025. FINDINGS: Side Boss view of the abdomen demonstrates a nondistended [...] Crohn's disease COMPARISON: US abdomen 01/29/2025. FINDINGS: Side Boss view of the abdomen demonstrates a nondistended [...] IMAGES: [phone] The examination was performed by RRAMiguel. Dr. Yunior Valladares wasimmediately available for portions of the procedure as needed. ATTESTATION: I, Yunior Valladares as teaching physician, have reviewed theimages for this case and if necessary edited the report originally createdby Miguel Blankenship. us Leeann BELTRAN IMG [facility] Final Resul t * Comprehensive metabolic panel (01/29/2025 12:08 PM EDT) SODIUM 138 133 - 146 mmol/L [facility] POTASSIUM 4.0 3.3 - 5.1 mmol/L [facility] CHLORIDE 103 96 - 108 mmol/L [facility] CO2 24 21 - 35 mmol/L [facility] BUN 8 6 - 19 mg/dL [facility] CREATININE 0.70 0.5 - 1.5 mg/dL [facility] GLUCOSE 77 70 - 99 mg/dL [facility] ALBUMIN 4.4 3.9 - 4.8 g/dL [facility] TOTAL PROTEIN 7.4 6.5 - 8.0 g/dL [facility] CALCIUM 9.1 8.4 - 10.3 mg/dL [facility] ALKALINE PHOSPHATASE 82 39 - 117 U/L [facility] TOTAL BILIRUBIN 0.5 0.0 - 1.2 mg/dL [facility] AST 14 0 - 37 U/L [facility] ALT 9 0 - 40 U/L [facility] GLOBULIN 3.0 1 - 4.8 g/dL [facility] EGFR 119 >59 mL/min/1.7 3m2 [facility] Comment:Estimated glomerular filtration rate calculated using the CKD-EPI refit equation. ANION GAP 15 10 - 20 mmol/L [facility] Blood 01/29/2025 12:0 8 PM EDT 01/29/2025 12:10 PM EDT us Ana Piedra MD LAB BLOOD ORDERABLES Final Result Performing Organization Address City/State/[facility] Co de Phone Number [facility] [address] [place] [address] * US ABDOMEN COMPLETE (ADULT) (01/29/2025 11:33 AM EDT) Anatomical Region Laterality Modality Abdomen Ultrasound 01/29/2025 11:3 5 AM EDT Impressions 01/29/2025 11:38 AM EDT Status post cholecystectomy. No sonographic findings to explain abdominal pain. Narrative 01/29/2025 11:38 AM EDT US ABDOMEN COMPLETE (ADULT) Referring clinician's provided indication for this examination in Epic: Nausea/vomiting; Pain; s/p 12/04/24 cas, continued pain,diarrhea TECHNIQUE: Abdominal Ultrasound Complete. COMPARISON: US ABDOMEN LIMITED RIGHT UPPER QUADRANT FINDINGS: Liver: Normal. No focal lesions. Main Portal Vein: Patent with normal direction of flow. Gallbladder: Surgically absent. Biliary: No intrahepatic or extrahepatic biliary ductal dilatation. The common bile duct measures 2 mm. Pancreas: Incompletely visualized. Spleen: No splenomegaly. Kidneys: No stones or hydronephrosis. Aorta: Normal, where visualized sonographically. IVC: Normal intrahepatic segment. Free Fluid: None. Procedure Note Zachary Ochoa DO, MPH - 01/29/2025 US ABDOMEN COMPLETE (ADULT) Referring clinician's provided indication for this examination in Epic:Nausea/vomiting; Pain; s/p 12/04/24 cas, continued pain,diarrhea TECHNIQUE: Abdominal Ultrasound Complete. COMPARISON: US ABDOMEN LIMITED RIGHT UPPER QUADRANT FINDINGS: Liver: Normal. No focal lesions. Main Portal Vein: Patent with normal direction of flow. Gallbladder: Surgically absent. Biliary: No intrahepatic or extrahepatic biliary ductal dilatation. The common bile duct measures 2 mm. Pancreas: Incompletely visualized. Spleen: No splenomegaly. Kidneys: No stones or hydronephrosis. Aorta: Normal, where visualized sonographically. IVC: Normal intrahepatic segment. Free Fluid: None. IMPRESSION: Status post cholecystectomy. No sonographic findings to explain abdominalpain. Ana Piedra MD IMG US ABDOMEN Final Resu lt * (ABNORMAL) Urinalysis w/reflex Urine Culture (01/26/2025 2:54 PM EDT) COLOR Yellow Yellow [facility] CLARITY Clear [facility] GLUCOSE Negative Negative [facility] BILI 1+(A) Negative [facility] KETONES 3+(A) Negative [facility] SPECIFIC GRAVITY >1.030 1.005 - 1.030 [facility] BLOOD 1+(A) Negative [facility] PH 6.0 5.0 - 8.0 [facility] Protein-UA Negative Negative [facility] NITRITE Positive(A) Negative [facility] Leukocyte esterase, ur Negative Negative [facility] Urine (Urine) 01/26/2025 2:5 4 PM EDT 01/26/2025 3:07 PM EDT Zev Cramer MD URINE ORDERABLES F inal Result Performing Organization Address City/[facility]/ZIP Co de Phone Number [address] [address] * Urine Culture (01/26/2025 2:54 PM EDT) Special Requests None 01/26/2025 5:34 PM EDT [facility] Urine Culture <10,000 colony forming units per mL 01/28/2025 8:45 AM EDT [facility] Urine 01/26/2025 2:54 PM EDT 01/26/2025 5:34 PM EDT us Ernesto Kelley MD MICROBIOLOGY - GENERAL ORDERABLE S Final Result Performing Organization Address [facility] Co de Phone Number [address] [address] * (ABNORMAL) Urine sediment (01/26/2025 2:54 PM EDT) WBC 0-4(A) NONE SEEN /hpf [facility] RBC 6-10(A) NONE SEEN /hpf [facility] URINE EPITHELIAL 0-4(A) NONE SEEN [facility] MUCUS 2+(A) NONE SEEN /hpf [facility] BACTERIA NONE SEEN NONE SEEN /hpf [facility] 01/26/2025 2:54 PM EDT 01/26/2025 3:07 PM EDT us Zev Cramer MD URINE ORDERABLES F inal Result Performing Organization Address City/[facility]/ZIP Co de Phone Number [address] [address] * HCG, serum qualitative (01/26/2025 11:30 AM EDT) HCG, QUALITATIVE Negative Negative IU/L [facility] Blood 01/26/2025 11:3 0 AM EDT 01/26/2025 11:48 AM EDT us Zev Cramer MD LAB BLOOD ORDERABL ES Final Result Performing Organization Address City/[facility]/ZIP Co de Phone Number [address] [address] * LFTs (hepatic panel) (01/26/2025 11:30 AM EDT) ALKALINE PHOSPHATASE 91 39 - 117 U/L [facility] TOTAL BILIRUBIN 0.6 0.0 - 1.2 mg/dL [facility] DIRECT BILIRUBIN 0.2 0.0 - 0.2 mg/dL [facility] Bilirubin (Indirect) 0.4 0 - 1.5 mg/dL [facility] AST 13 0 - 37 U/L [facility] ALT 10 0 - 40 U/L [facility] TOTAL PROTEIN 7.7 6.5 - 8.0 g/dL [facility] ALBUMIN 4.5 3.9 - 4.8 g/dL [facility] GLOBULIN 3.2 1 - 4.8 g/dL [facility] A/G Ratio 1.41 1.00 - 4.80 RATIO [facility] Blood 01/26/2025 11:3 0 AM EDT 01/26/2025 11:48 AM EDT Zev Cramer MD LAB BLOOD ORDERABL ES Final Result Performing Organization Address [facility]/ZIP Co de Phone Number [address] [address] * (ABNORMAL) CBC and differential (01/26/2025 11:30 AM EDT) WBC 8.37 4.00 - 11.00 K/uL [facility] RBC 4.91 4.00 - 5.20 M/uL [facility] HGB 13.1 12.0 - 16.0 g/dL [facility] HCT 40.8 36.0 - 46.0 % [facility] PLT 430 150 - 450 K/uL [facility] MCV 83.1 80.0 - 100.0 fL [facility] MCH 26.7(L) 27.0 - 31.0 pg [facility] MCHC 32.1 32.0 - 36.0 g/dL [facility] RDW 14.0 11.5 - 14.5 % [facility] MPV 8.6 8.4 - 12.0 fL [facility] NRBC 0.00 0.00 /100 WBCs [facility] ABSOLUTE NRBC 0.00 0.00 K/uL [facility] DIFF METHOD Auto [facility] NEUTS 69.5 48.0 - 76.0 % [facility] LYMPHS 21.7 18.0 - 41.0 % [facility] MONOS 4.8 4.0 - 11.0 % [facility] EOS 3.6 0.0 - 5.0 % [facility] BASOS 0.2 0.0 - 1.5 % [facility] Granulocytes, immature (%) 0.2 0.0 - 0.9 % [facility] ABSOLUTE NEUTS 5.81 1.92 - 7.60 K/uL [facility] ABSOLUTE LYMPHS 1.82 0.72 - 4.10 K/uL [facility] ABSOLUTE MONOS 0.40 0.16 - 1.10 K/uL [facility] ABSOLUTE EOS 0.30 0.00 - 0.50 K/uL [facility] ABSOLUTE BASOS 0.02 0.00 - 0.15 K/uL [facility] Granulocytes, immature 0.02 0.00 - 0.09 K/uL [facility] Blood 01/26/2025 11:3 0 AM EDT 01/26/2025 11:48 AM EDT us Zev Cramer MD LAB BLOOD ORDERABL ES Final Result [facility] [address], [place] [id number] * Lipase (01/26/2025 11:30 AM EDT) LIPASE 17 16 - 63 U/L [facility] Blood 01/26/2025 11:3 0 AM EDT 01/26/2025 11:48 AM EDT Zev Cramer MD LAB BLOOD ORDERABL ES Final Result Performing Organization Address [facility]/ZIP Co de Phone Number [address] [address] * Basic metabolic panel (01/26/2025 11:30 AM EDT) SODIUM 135 133 - 146 mmol/L [facility] CHLORIDE 99 96 - 108 mmol/L [facility] POTASSIUM 3.7 3.3 - 5.1 mmol/L [facility] CO2 23 21 - 35 mmol/L [facility] BUN 8 6 - 19 mg/dL [facility] CREATININE 0.70 0.5 - 1.5 mg/dL [facility] GLUCOSE 94 70 - 99 mg/dL [facility] CALCIUM 9.6 8.4 - 10.3 mg/dL [facility] EGFR 119 >59 mL/min/1.7 3m2 [facility] Comment:Estimated glomerular filtration rate calculated using the CKD-EPI refit equation. ANION GAP 17 10 - 20 mmol/L [facility] Blood 01/26/2025 11:3 0 AM EDT 01/26/2025 11:48 AM EDT Zev Cramer MD LAB BLOOD ORDERABL ES Final Result Performing Organization Address [facility]/ZIP Co de Phone Number [address] [address] * ANES ETT DOUBLE LUMEN - AIRWAY LDA (12/04/2024 8:49 AM EDT) Narrative Sesar Jarrell CRNA - 12/04/2024 8:49 AM EDT Sesar Jarrell CRNA 12/04/2024 9:09 AM Airway Placement Procedure Note: Patient was not difficult to intubate. Procedure performed by: fellow/resident/MOBILE HEALTH VEHICLE OPERATOR Anesthesiologist: Yunior Sykes MD Fellow/Resident/MOBILE HEALTH VEHICLE OPERATOR: Sesar Jarrell CRNA Airway procedure initiated at:12/04/2024 8:49 AM and ended at. Personal Protective Equipment: Mask: surgical mask Eye Protection: eye shield Gloves: gloves Gown: no gown Mask Ventilation: Quality: not attempted Airway Placement: Technique: video laryngoscopy Rapid sequence induction: no Details: Blade type: Glidescope Blade size: 3 Video view: grade 1 Video Laryngoscopy was: elective Number of attempts: 1 ETT type: cuffed ETT size: 7.5 ETT depth at teeth: 20 ETT cuff inflation volume: 8 Cuff pressure (cm H2O): MOV. Tube position confirmed by: bilateral breath sounds and EtCO2 Outcomes: Evidence of dental injury? no Complications observed? no us Yunior Sykes MD RI ANESTHESIA Final Result * Anatomic Pathology (12/04/2024 12:00 AM EDT) 12/04/2024 12/04/2024 10: 57 AM EDT Narrative SEE NARRATIVE - 12/05/2024 12:27 [place] [address] Rehabilitation Counsellor: Ernesto Moran MD Surgical Pathology Report FINAL PATHOLOGIC DIAGNOSIS: GALLBLADDER, CHOLECYSTECTOMY: Chronic cholecystitis, cholesterolosis and cholelithiasis. Electronically Signed Out By Omaira Mclaughlin MD By his/her signature above, the pathologist listed as making the Final Diagnosis certifies that he/she has personally reviewed this case and confirmed or corrected the diagnosis. CLINICAL HISTORY Gallbladder calculus without cholecystitis and no obstruction [K80.20] SPECIMENS SUBMITTED: A: GALLBLADDER CHOLECYSTECTOMY GROSS DESCRIPTION GALLBLADDER CHOLECYSTECTOMY: Received in formalin is a 6.8 x 3.0 x 2.7 cm intact gallbladder. The surface is smooth to focally cauterized and padron-pink. The specimen is opened to reveal approximately 20 cc of bile admixed with a 1.5 x 0.7 x 0.3 cm aggregate of bosselated, green-yellow choleliths varying in maximum diameter from 0.2 to 0.5 cm. The mucosa is bile-stained, padron-red with marked yellow stippling. The wall averages 0.1-0.2 cm in thickness. The segment of cystic duct received varies in diameter from 0.2-0.4 cm. Automotive Internet Sales Consultant sections are submitted in a single cassette A1. Grossed by: KATYA Jiang, PA(ASCP) [id number] 12/04/2024 Grossing Staff: [id number] Patient Name: ABIMBOLA KELSEY : 1995 (Age: 29) Sex: F [facility]: [facility] Date of Operation: 12/04/2024 Date of Reported: 12/05/2024 12:27 Results To: Ana Piedra MD, BA Holly BELTRAN us Ana Piedra MD PATHOLOGY ORDERABLES Final Result Performing Organization Address City/[facility]/ZIP Co de Phone Number SEE NARRATIVE * Hepatitis C antibody, qualitative (02/26/2020 11:19 AM EDT) HCV NON-REACTIV E NON-REACTI VE [facility] Blood 02/26/2020 11:1 9 AM EDT 02/26/2020 11:32 AM EDT us Karina NICHOLSON LAB BLOOD ORDERABLES F inal Result Performing Organization Address City/[facility] Co de Phone Number [address] [address] * Pap Smear (04/11/2017 12:00 AM EST) 04/11/2017 04/12/2017 2:4 3 PM EST Narrative SEE NARRATIVE - 04/17/2017 5:03 PM EST [address] [address] Rehabilitation Counsellor: Omaira Mclaughlin MD HOSPICE SPIRITUAL CARE COORDINATOR Cytology Report FINAL DIAGNOSIS A. PAP SMEAR (SUREPATH) C: SPECIMEN ADEQUACY: Satisfactory for evaluation; transformation zone present. INTERPRETATION: NEGATIVE FOR INTRAEPITHELIAL LESION OR MALIGNANCY. Electronically Signed Out By: Lawson Marlow The Pap test is a screening test primarily for squamous cancers and precursors and has associated false-negative and false-positive results. New technologies such as liquid-based preparations may decrease but will not eliminate all false-negative results. Regular sampling and follow-up of unexplained clinical signs and symptoms are recommended to minimize false negative results. CLINICAL HISTORY Date of Last Menstrual Period: Not Provided Menstrual History: Post Other Clinical Conditions: Screening Pap SPECIMEN SOURCE A: PAP SMEAR (SUREPATH) C Patient Name: ABIMBOLA KELSEY : 1995 (Age: 22) Sex: F Institution: [facility] Location: [facility] Date of Collection: 04/11/2017 Date of Reported: 04/17/2017 17:03 Results to: Yudelka Gill CNM Yudelka Gill CNM CYTOLOGY ORDERABLES Sammie l Result SEE NARRATIVE from Last 3 Months or Most Recently Relevant to Health Maintenance Insurance [place] [address] [place] [address] [place] [address] [place] [address] [place] [address] [place] [address] [address] [place] [address] ACO Advance Directives For more information, please contact: [phone] (9AM - 5PM [facility], Monday-Monday) Documents on File Type Date Recorded Patient Automotive Internet Sales Consultant Expl anation Healthcare Proxy 12/04/2024 * Full Code (Latest Code Status on File) Date Activated Date Inactivated Comments 08/27/2020 9:40 AM Question Answer Comments Code Status Confirmed With: Patient * Full Code Date Activated Date Inactivated Comments 08/27/2020 6:06 AM 08/27/2020 9:40 AM Question Answer Comments Code Status Confirmed With: Patient * Full Code (Presumed) Date Activated Date Inactivated Comments 04/29/2019 10:03 AM 04/30/2019 9:49 PM * Full Code (Presumed) Date Activated Date Inactivated Comments 04/29/2019 7:35 AM 04/29/2019 10:02 AM * Full Code (Presumed) Date Activated Date Inactivated Comments 02/26/2019 3:01 PM 02/26/2019 8:22 PM Care Teams Automation Control Technician Relationship Specialty Start Date End Date Holly Cobb PA [address] [place] [address] PCP - General Physician Park Keeper 11/23/24 Additional Source Comments The information contained in this document represents components of the legal health record. It is not the complete legal health record.[facility]
--- OUTSIDE RECORDS SUMMARY | 2025-03-06 09:40 | XMS_ITS | Encounter Summary ---
Author Organization [facility] Address [address] [place] [address] Phone Care Team Providers Care Express Manager Name Role Phone Cherry Ji MD Primary Care Provider Encounter Details Date Type Department Care Team (Late st Contact Info) Description 08/30/2014 Documentation [facility] [place] [address] [place], [place] [phone] Family Medicine, Physician [address] [place], [place] [address] Social History Tobacco Use Types Packs/Day Years Used Date Smoking Tobacco: Former Comments:Former smoker Comments Unknown Sex and Gender Information Value Date Recorded Sex Assigned at Not on file Legal Sex Female 4:57 PM EDT Gender Identity Not on file Sexual Orientation Not on file documented as of this encounter Plan of Treatment Not on file documented as of this encounter Visit Diagnoses Not on filedocumented in this encounter Care Teams Express Manager Relationship Specialty Start Date End Date Cherry Ji MD [address] [place] [address] PCP - General 01/13/17 09/20/22 documented as of this encounter
--- OUTSIDE RECORDS SUMMARY | 2025-03-06 09:40 | XMS_ITS | Encounter Summary ---
Author Organization [facility] Address [address] [place] [address] Phone Care Team Providers Care Steam Clothes Press Operator Name Role Phone Cherry Ji MD Primary Care Provider Encounter Details Date Type Department Care Team (Late st Contact Info) Description 05/06/2014 Documentation [facility] [place] [address] [place], [place] [phone] Family Medicine, Physician [address] [place], [place] [phone] Social History Tobacco Use Types Packs/Day Years [...] on filedocumented in this encounter Care Teams Steam Clothes Press Operator Relationship Specialty Start Date End Date Cherry Ji MD [address] [place] [address] PCP - General 01/13/17 09/20/22 documented as of this encounter
--- OUTSIDE RECORDS SUMMARY | 2025-03-06 09:40 | XMS_ITS | Encounter Summary ---
Author Organization [facility] Address [address] [place] [address] Phone Care Team Providers Care Wax Molder Name Role Phone Cherry Ji MD Primary Care Provider Encounter Details Date Type Department Care Team (Late st Contact Info) Description 06/18/2012 Documentation [facility] [place] Medicine [address] [place], [place] [address] Family Medicine, Physician [address] [place], [place] [address] Social History Tobacco Use Types Packs/Day Years Used Date Smoking Tobacco: Never Assessed Comments Unknown Sex and Gender Information Value Date Recorded Sex Assigned at Not on file Legal Sex Female 4:57 PM EDT Gender Identity Not on file Sexual Orientation Not on file documented as of this encounter Plan of Treatment Not on file documented as of this encounter Visit Diagnoses Not on filedocumented in this encounter Care Teams Wax Molder Relationship Specialty Start Date End Date Cherry Ji MD [address] [place] [address] PCP - General 01/13/17 09/20/22 documented as of this encounter
--- OUTSIDE RECORDS SUMMARY | 2025-03-06 09:40 | XMS_ITS | Encounter Summary ---
Author Organization [facility] Address [address] [place] [address] Phone Care Team Providers Care Converter Supervisor Name Role Phone Cherry Ji MD Primary Care Provider Encounter Details Date Type Department Care Team (Late st Contact Info) Description 11/12/2012 [place] [facility] [place] [address] [place], [place] [phone] Family Medicine, Physician [address] [place], [place] [address] Social History Tobacco Use Types Packs/Day Years [...] on filedocumented in this encounter Care Teams Converter Supervisor Relationship Specialty Start Date End Date Cherry Ji MD [address] [place] [address] PCP - General 01/13/17 09/20/22 documented as of this encounter
--- OUTSIDE RECORDS SUMMARY | 2025-03-06 09:40 | XMS_ITS | Encounter Summary ---
Author Organization [facility] Address [address] [place] [address] Phone Care Team Providers Care Radio Antenna Installer Name Role Phone Holly Cobb Primary Care Provide r Encounter Details Date Type Department Care Team (Latest Contact Info) Description 02/11/2025 Transcribe Orders Virtual Department [address] [place] [address] Leeann Villegas PA [address] [place] [address] Crohn's disease with complication, unspecified gastrointestinal tract location (Primary Dx) Social History Tobacco Use Types [...] Description 03/21/2025 10:30 AM EDT Office Visit [facility] [address] [place] [address] Unknown, Unknown, Donovan Dos Santos MD [address] [place] [address] 07/09/2025 9:00 AM EST Office Visit [facility] [address] [place] [address] Unknown, Unknown, Leeann Joyce PA-C [address] [address] [email or web address] documented as of this encounter Visit Diagnoses Diagnosis Crohn's disease with complication, unspecified gastrointestinal tract location- Primary documented in this encounter Care Teams Radio Antenna Installer Relationship Specialty Start Date End Date Holly Cobb PA [address] [place] [address] PCP - General Physician Incinerator Operator 11/23/24 documented as of this encounter Additional Source Comments The information contained in this document represents components of the legal health record. It is not the complete legal health record.[facility]
--- OUTSIDE RECORDS SUMMARY | 2025-03-06 09:40 | XMS_ITS | Encounter Summary ---
Author Organization [facility] Address [address] [place] [address] Phone Care Team Providers Care Art Sales Consultant Name Role Phone Ten Coffman Primary Care Provider [phone] Charles Alanis MD Primary Care Provider Holly Cobb Primary Care Provide r Encounter Details Date Type Department Care Team (Late Contact Info) Description 04/29/2019 Procedure Pass [facility] L&D Procedures 30 [place] [address] Social History Tobacco Use Types Packs/Day Years Used Date Smoking Tobacco: Former Cigarettes Smokeless Tobacco: Never Alcohol Use Standard Drinks/Week Comments No 0 [...] Encounters Date Type Department Care Team (Late Contact Info) Description 03/21/2025 10:30 AM EDT Office Visit [facility] 10 [place] [address] Unknown, Unknown, Donovan Dos Santos MD [address] [address] 07/09/2025 9:00 AM EST Office Visit [facility] 10 [place] [address] Unknown, Unknown, Leeann Joyce PA-C 10 [facility] 2 [place] [address] [email or web address] documented as of this encounter Visit Diagnoses Not on filedocumented in this encounter Additional Health Concerns Infection Onset Date Last Indicated Resolved Time CoV-Risk 05/15/2022 05/15/2022 05/26/2022 1:23 AM EST documented as of this encounter Care Teams Art Sales Consultant Relationship Specialty Start Date End Date Ten Coffman DO [address] [address] PCP - General 03/23/17 06/09/20 Charles Alanis MD [address] [place] [address] PCP - General 06/10/20 11/22/24 Holyl Cobb PA [address] [place] [address] PCP - General Physician Diamond Powder Mixer 11/23/24 documented as of this encounter Additional Source Comments The information contained in this document represents components of the legal health record. It is not the complete legal health record.[facility]
--- OUTSIDE RECORDS SUMMARY | 2025-03-06 09:40 | XMS_ITS | Encounter Summary ---
Author Organization [facility] Address [address] [place] [address] Phone Care Team Providers Care Cfa Name Role Phone Cherry Ji MD Primary Care Provider Encounter Details Date Type Department Care Team (Late st Contact Info) Description 05/06/2014 Documentation [facility] [place] [address] [place], [place] [phone] Family Medicine, Physician [address] [place], [place] [address] Social History Tobacco Use Types Packs/Day Years [...] on filedocumented in this encounter Care Teams Cfa Relationship Specialty Start Date End Date Cherry iJ MD [address] [place] [address] PCP - General 01/13/17 09/20/22 documented as of this encounter
--- OUTSIDE RECORDS SUMMARY | 2025-03-06 09:40 | XMS_ITS | Clinical Summary ---
Author Organization [facility] Address [address] [place] [address] Phone Care Team Providers Care Endoscopy Technican Name Role Phone Unavailable Primary Care Provider [...] 12/20/1994, Additional history exists Influenza Vaccines (#1) 2025 02/19/2009 COVID-19 Vaccine ( season) 2025 Hepatitis B Vaccines Completed 1993, 1993, 1993 [...] complete this topic Procedures * Due to [place] state law, this organization might not be sharing sensitive test results. Procedure Name Priority Date/Time Associated Diagnosis Comments CHLAMYDIA AND GONORRHEA, AMPLIFIED Routine 11/19/2013 9:26 AM EDT from Last 3 Months or Most Recently Relevant to Health Maintenance Results * Due to [place] state law, this organization might not be sharing sensitive test results. * Chlamydia and Gonorrhoea, Amplified (11/19/2013 9:26 AM EDT) [facility] URINE GC AMP PROBE NEGATIVE [facility] Comment: NO NEISSERIA GONORRHOEAE RNA DETECTED IN THIS PATIENT'S SAMPLE. (REFERENCE RANGE/NORMAL VALUE: NOT DETECTED) SPECIMEN SOURCE IS NOT FDA APPROVED NOTE: This test uses coremaking machine operator-mediated amplification method to detect rRNA from C.Trachomatis [...] without risk of sexual abuse. Consult the [facility] if needed. Contact phone number . Therapeutic failure or success cannot be determined with the Aptima Combo2 assay since nucleic acid may persist following appropriate antimicrobial therapy. The Centers for Disease Control and Prevention (CDC) recommends confirmatory retesting using culture or a different nucleic acid amplification test when positive results occur, if indicated. Testing performed or reported by [facility], a Service of [facility], [address] [place] [address] Lawson Andre, Plate Glass Installer URINE CHLAMYDIA AMP PROBE NEGATIVE [facility] Comment: NO CHLAMYDIA TRACHOMATIS RNA DETECTED IN THIS PATIENT'S SAMPLE. (REFERENCE RANGE/NORMAL VALUE: NOT DETECTED) SPECIMEN SOURCE IS NOT FDA APPROVED 11/19/2013 9:26 AM EDT Narrative [facility] - 11/19/2013 9:26 AM EDT URINE CHLAMYDIA GC AMP PROBE us Adina Cooper NP LAB MICROBIOLOGY - GENERA L ORDERABLES Final Result [facility] [address] [id number], [place] from Last 3 Months or Most Recently Relevant to Health Maintenance
--- OUTSIDE RECORDS SUMMARY | 2025-03-06 09:40 | XMS_ITS | Encounter Summary ---
Author Organization [facility] Address [address] [place] [address] Phone Care Team Providers Care Shop Mechanic Helper Name Role Phone Cherry Ji MD Primary Care Provider Encounter Details Date Type Department Care Team (Late st Contact Info) Description 08/28/2014 Documentation [facility] [place] [address] [place], [place] [phone] Family Medicine, Physician [address] [place], [place] [address] Social History Tobacco Use Types Packs/Day Years [...] on filedocumented in this encounter Care Teams Shop Mechanic Helper Relationship Specialty Start Date End Date Cherry Ji MD 150 [place] [address] PCP - General 01/13/17 09/20/22 documented as of this encounter
--- OUTSIDE RECORDS SUMMARY | 2025-03-06 09:40 | XMS_ITS | Encounter Summary ---
Author Organization [facility] Address [address] [place] [address] Phone Care Team Providers Care Portable Grinding Machine Operator Name Role Phone Cherry Ji MD Primary Care Provider Encounter Details Date Type Department Care Team (Late st Contact Info) Description 01/19/2017 Conversion Encounter [facility] [place] 150 [place] [address] Social History Tobacco Use Types Packs/Day Years [...] on filedocumented in this encounter Care Teams Portable Grinding Machine Operator Relationship Specialty Start Date End Date Cherry Ji MD 150 [place] [address] PCP - General 01/13/17 09/20/22 documented as of this encounter
--- OUTSIDE RECORDS SUMMARY | 2025-03-06 09:40 | XMS_ITS | Encounter Summary ---
Author Organization [facility] Address [address] [place] [address] Phone Care Team Providers Care Tile Conduit Layer Name Role Phone Cherry Ji MD Primary Care Provider Encounter Details Date Type Department Care Team (Late st Contact Info) Description 04/07/2014 Documentation [facility] [place] Family Medicine [address] [place], [place] [phone] Family Medicine, Physician [address] [place], [place] [address]341 Social History Tobacco Use Types Packs/Day Years [...] on filedocumented in this encounter Care Teams Tile Conduit Layer Relationship Specialty Start Date End Date Cherry Ji MD 150 [place] [address] PCP - General 01/13/17 09/20/22 documented as of this encounter
--- OUTSIDE RECORDS SUMMARY | 2025-03-06 09:40 | XMS_ITS | Encounter Summary ---
Author Organization [facility] Address [address] [place] [address] [place] [address] Phone Care Team Providers Care Claim Specialist Name Role Phone Charles Alanis MD Primary Care Provider Holly Cobb Primary Care Provide r Encounter Details Date Type Department Care Team (Late Contact Info) Description 06/10/2020 Ancillary Orders [facility] [address] [place] [address] Liana Mcgovern CNM 22 [facility], [address] [place] [address] [email or web address] Placental abnormality in second trimester Social History Tobacco Use Types Packs/Day Years Used Date Smoking Tobacco: Former Cigarettes Smokeless Tobacco: Former Alcohol Use Standard Drinks/Week Comments No 0 (1 standard drink = 0.6 oz pur e alcohol) Comments Yes Sex and Gender Information Value Date Recorded [...] Description 03/21/2025 10:30 AM EDT Office Visit [facility] Gastroenterology Clinic 10 [place] [address] Unknown, Unknown, Donovan Dos Santos MD [address] [address] 07/09/2025 9:00 AM EST Office Visit [facility] 10 [place] [address] Unknown, Unknown, Leeann Joyce PA-C [address] [address] [email or web address] documented as of this encounter Results * US OB GREATER THAN OR EQUAL TO 14 WEEKS FOLLOW-UP ONLY (06/10/2020 8:58 AM EST) Anatomical Region Laterality Modality Abdomen, Pelvis, Uterus/Adnexa U ltrasound 06/10/2020 8:59 AM EST Impressions 06/11/2020 2:10 PM EST Normal growth and JACQUELINE. There is a small placental cee seen. The fetus is in a breech presentation. There is a nuchal cord seen. This finding is seen in approximately 25% of deliveries and is not associated with adverse outcome. Narrative 06/11/2020 2:10 PM EST INDICATION: SIZE/DATE DISCREPANCY DATING: Exam Date: 06/10/2020 Last Menstruation: 11/27/2019 Estimated Delivery Date: September 02, 2020 Ultrasound Age: (28)w(05)d Gestational Age by LMP: (28)w(00)d Estimated Delivery by AUA: August 28, 2020 ANATOMY SCAN: Biparietal Diameter measures : 7.05 cm; dating of: (28)w(03)d; 49% by Hadlock Head Circumference measures : 26.54 cm; dating of: (29)w(00)d; 47% by Hadlock Abdominal Circumference measures : 24.01 cm; dating of: (28)w(03)d; 51% by Hadlock Femur Length measures : 5.42 cm; dating of: (28)w(05)d; 55% by Hadlock Lateral Ventricle measures : 0.73 cm HC/AC Ratio is : 1.11 FL/BPD Ratio is : 77 % FL/AC Ratio is : 23 % Estimated Weight is : 8ik96dz : 1235g; : 54 % by Hadlock Heart Activity : Present with the Heart Rate at : 153 bpm. Presentation is : Footling Breech Amniotic Fluid presents : Normal Maximum Vertical Pocket is : 4.79 cm Placental Location : Anterior. Placental Grade is : 1-2. Placental Description : Placenta cee is still noted along surface. ANATOMY: Lateral Ventricle is : Seen Stomach is : Seen Bladder is : Seen Kidneys are : Seen 4 Chamber Heart is : Seen Sex is : Male WELLBEING ASSESSMENT: Amniotic Fluid Index (JACQUELINE) : 14.90 cm Quad 1 : 4.79 cm Quad 2 : 3.32 cm Quad 3 : 3.28 cm Quad 4 : 3.51 cm MATERNAL STRUCTURES: Cervical Length is : Not seen TECH COMMENTS: Single active footling breech fetus. Nuchal cord is noted. Growth is at 54%. JACQUELINE = 14.90 cm. Choroid plexus cyst has resolved. Placental cee is again noted along the surface. Transabdominal scanning was performed. Procedure Note Aren Monroy MD - 06/11/2020 INDICATION: SIZE/DATE DISCREPANCY DATING: Exam Date: 06/10/2020 Last Menstruation: 11/27/2019 Estimated Delivery Date: September 02, 2020 Ultrasound Age: (28)w(05)d Gestational Age by LMP: (28)w(00)d Estimated Delivery by AUA: August 28, 2020 ANATOMY SCAN: Biparietal Diameter measures : 7.05 cm; dating of: (28)w(03)d; 49% byHadlock Head Circumference measures : 26.54 cm; dating of: (29)w(00)d; 47% byHadlock Abdominal Circumference measures : 24.01 cm; dating of: (28)w(03)d; 51%by Hadlock Femur Length measures : 5.42 cm; dating of: (28)w(05)d; 55% by Hadlock Lateral Ventricle measures : 0.73 cm HC/AC Ratio is : 1.11 FL/BPD Ratio is : 77 % FL/AC Ratio is : 23 % Estimated Weight is : 1ue50if : 1235g; : 54 % by Hadlock Heart Activity : Present with the Heart Rate at : 153 bpm. Presentation is : Footling Breech Amniotic Fluid presents : Normal Maximum Vertical Pocket is : 4.79 cm Placental Location : Anterior. Placental Grade is : 1-2. Placental Description : Placenta cee is still noted along fetalsurface. ANATOMY: Lateral Ventricle is : Seen Stomach is : Seen Bladder is : Seen Kidneys are : Seen 4 Chamber Heart is : Seen Sex is : Male WELLBEING ASSESSMENT: Amniotic Fluid Index (JACQUELINE) : 14.90 cm Quad 1 : 4.79 cm Quad 2 : 3.32 cm Quad 3 : 3.28 cm Quad 4 : 3.51 cm MATERNAL STRUCTURES: Cervical Length is : Not seen TECH COMMENTS: Single active footling breech fetus. Nuchal cord is noted. Growth is at54%. JACQUELINE = 14.90 cm. Choroid plexus cyst has resolved. Placental lakeis again noted along the surface. Transabdominal scanning was performed. IMPRESSION: Normal growth and JACQUELINE. There is a small placental cee seen. Thefetus is in a breech presentation. There is a nuchal cord seen. Thisfinding is seen in approximately 25% of deliveries and is not associatedwith adverse outcome. [facility] Final Result documented in this encounter Visit Diagnoses Diagnosis Placental abnormality in second trimester Placental abnormality in second trimester documented in this encounter Additional Health Concerns Infection Onset Date Last Indicated Resolved Time CoV-Risk 05/15/2022 05/15/2022 05/26/2022 1:23 AM EST documented as of this encounter Care Teams Claim Specialist Relationship Specialty Start Date End Date Charles Alanis MD [address] [place] [address] PCP - General 06/10/20 11/22/24 Holly Cobb PA [address] [place] [address] PCP - General Physician Emt/Paramedic 11/23/24 documented as of this encounter Additional Source Comments The information contained in this document represents components of the legal health record. It is not the complete legal health record.[facility]
--- OUTSIDE RECORDS SUMMARY | 2025-03-06 09:40 | XMS_ITS | Encounter Summary ---
Author Organization [facility] Address [address] [place] [address] Phone Care Team Providers Care Counter Maker Name Role Phone Cherry Ji MD Primary Care Provider Encounter Details Date Type Department Care Team (Late st Contact Info) Description 05/06/2014 Documentation [facility] [place] [address] [place], [place] [phone] Family Medicine, Physician [address] [place], [place] [address] Social History Tobacco Use Types Packs/Day Years [...] on filedocumented in this encounter Care Teams Counter Maker Relationship Specialty Start Date End Date Cherry Ji MD [address] [place] [address] PCP - General 01/13/17 09/20/22 documented as of this encounter
--- OUTSIDE RECORDS SUMMARY | 2025-03-06 09:40 | XMS_ITS | Encounter Summary ---
Author Organization [facility] Address [address] [place] [address] Phone Care Team Providers Care Document Clerk Name Role Phone Charles Alanis MD Primary Care Provider Holly Cobb Primary Care Provide r Encounter Details Date Type Department Care Team (Late Contact Info) Description 08/29/2020 Procedure Pass [facility], Ct Scan - [address] [address] Social History Tobacco Use Types Packs/Day Years [...] 03/21/2025 10:30 AM EDT Office Visit [facility] Gastroenterology Clinic 10 [place] [address] Unknown, Unknown, Donovan Dos Santos MD [address] [address] 07/09/2025 9:00 AM EST Office Visit [facility]astro[facility]ology [facility] 10 [place] [address] Unknown, Unknown, Leeann Joyce PA-C [address] [address] [email or web address] documented as of this encounter Visit Diagnoses Not on filedocumented in this encounter Additional Health Concerns Infection Onset Date Last Indicated Resolved Time CoV-Risk 05/15/2022 05/15/2022 05/26/2022 1:23 AM EST documented as of this encounter Care Teams Document Clerk Relationship Specialty Start Date End Date Charles Alanis MD [address] [place] [address] PCP - General 06/10/20 11/22/24 Holly Cobb PA [address] [place] [address] PCP - General Physician Recreation Specialist 11/23/24 documented as of this encounter Additional Source Comments The information contained in this document represents components of the legal health record. It is not the complete legal health record.[facility]
--- OUTSIDE RECORDS SUMMARY | 2025-03-06 09:41 | XMS_ITS | Encounter Summary ---
Author Organization [facility] Address [address] [place] [address] Phone Care Team Providers Care Silverware Assembler Name Role Phone Charles Alanis MD Primary Care Provider Holly Cobb Primary Care Provide r Encounter Details Date Type Department Care Team (Late Contact Info) Description 05/24/2023 Procedure Pass [facility], [address] [address] Social History Tobacco Use Types Packs/Day Years Used Date Smoking Tobacco: Former Cigarettes Smokeless Tobacco: Former Alcohol Use Standard Drinks/Week Comments No 0 (1 standard drink = 0.6 oz pur e alcohol) Education Answer Date Recorded Are you interested in more education? Not on mike e 09/30/2022 Are you concerned about learning? Not on file 09/30/2022 No 09/30/2022 No 09/30/2022 Digital Access Answer Date Recorded No 10/28/2022 No 10/28/2022 Reliable internet access at home? Not on file 10/28/2022 Device with a working camera? Not on file Comments No Sex and Gender Information Value [...] Description 03/21/2025 10:30 AM EDT Office Visit [facility] Gastroenterology Clinic 10 [place] [address] Unknown, Unknown, Donovan Dos Santos MD [address] [address] 07/09/2025 9:00 AM EST Office Visit [facility]astroenterology [facility] 10 [place] [address] Unknown, Unknown, Leeann Joyce PA-C [address] [address] [email or web address] documented as of this encounter Visit Diagnoses Not on filedocumented in this encounter Care Teams Silverware Assembler Relationship Specialty Start Date End Date Charles Alanis MD [address] [place] [address] PCP - General 06/10/20 11/22/24 Holly Cobb PA [address] [place] [address] PCP - General Physician Deputy Probation Officer 11/23/24 documented as of this encounter Additional Source Comments The information contained in this document represents components of the legal health record. It is not the complete legal health record.[facility]
--- OUTSIDE RECORDS SUMMARY | 2025-03-06 09:41 | XMS_ITS | Encounter Summary ---
Author Organization [facility] Address [address] [place] [address] Phone Care Team Providers Care Seismology Teacher Name Role Phone Charles Alanis MD Primary Care Provider Holly Cobb Primary Care Provide r Encounter Details Date Type Department Care Team (Late Contact Info) Description 05/31/2023 Procedure Pass [facility], [facility] [address] [place] [address] Social History Tobacco Use Types Packs/Day Years [...] Description 03/21/2025 10:30 AM EDT Office Visit [facility] Gastroenterology Clinic 10 [place] [address] Unknown, Unknown, Donovan Dos Santos MD [address] [address] 07/09/2025 9:00 AM EST Office Visit [facility] Gastroenterology Clinic 10 [place] [address] Unknown, Unknown, Leeann Joyce PA-C [address] [address] [email or web address] documented as of this encounter Visit Diagnoses Not on filedocumented in this encounter Care Teams Seismology Teacher Relationship Specialty Start Date End Date Charles Alanis MD [address] [place] [address] PCP - General 06/10/20 11/22/24 Holly Cbob PA [address] [place] [address] PCP - General Physician Feeder Switchboard Operator 11/23/24 documented as of this encounter Additional Source Comments The information contained in this document represents components of the legal health record. It is not the complete legal health record.[facility]
--- OUTSIDE RECORDS SUMMARY | 2025-03-06 09:41 | XMS_ITS | Encounter Summary ---
Author Organization [facility] Address [address] [place] [address] Phone Care Team Providers Care Consultant Nurse Name Role Phone Cherry Ji MD Primary Care Provider Encounter Details Date Type Department Care Team (Late st Contact Info) Description 09/10/2009 Documentation [facility] [place] Family Medicine [address] [place], [place] [phone] Family Medicine, Physician [address] [place], [place] [address] Social History Tobacco Use Types Packs/Day Years [...] on filedocumented in this encounter Care Teams Consultant Nurse Relationship Specialty Start Date End Date Cherry Ji MD 150 [place] [address] PCP - General 01/13/17 09/20/22 documented as of this encounter
--- OUTSIDE RECORDS SUMMARY | 2025-03-06 09:41 | XMS_ITS | Encounter Summary ---
Author Organization [facility] Address [address] [place] [address] Phone Care Team Providers Care Briquetter Operator Name Role Phone Cherry Ji MD Primary Care Provider Encounter Details Date Type Department Care Team (Late st Contact Info) Description 05/26/2011 Documentation [facility] [place] [address] [place], [place] [phone] Family Medicine, Physician [address] [place], [place] [phone] Social History Tobacco Use Types Packs/Day Years [...] on filedocumented in this encounter Care Teams Briquetter Operator Relationship Specialty Start Date End Date Cherry Ji MD [address] [place] [address] PCP - General 01/13/17 09/20/22 documented as of this encounter
--- OUTSIDE RECORDS SUMMARY | 2025-03-06 09:41 | XMS_ITS | Encounter Summary ---
Author Organization [facility] Address [address] [place] [address] Phone Care Team Providers Care Professor Of Voice Name Role Phone Cherry Ji MD Primary Care Provider [phone] Encounter Details Date Type Department Care Team (Late st Contact Info) Description 03/20/2012 Documentation [facility] [place] [address] [place], [place] [phone] Family Medicine, Physician [address] [place], [place] [address] Social History Tobacco Use Types Packs/Day Years [...] on filedocumented in this encounter Care Teams Professor Of Voice Relationship Specialty Start Date End Date Cherry Ji MD [address] [place] [address] PCP - General 01/13/17 09/20/22 documented as of this encounter
--- OUTSIDE RECORDS SUMMARY | 2025-03-06 09:41 | XMS_ITS | Encounter Summary ---
Author Organization [facility] Address [address] [place] [phone] Phone Care Team Providers Care Laboratory Supervisor Name Role Phone Holly Cobb Primary Care Provide r Encounter Details Date Type Department Care Team (Late st Contact Info) Description 12/04/2024 Procedure Pass OR Admitting Dept - Virtual Department [address] [place] [address] Social History Tobacco Use Types Packs/Day Years [...] with a working camera? Not on file Intimate Partner Violence Answer Date R ecorded Are you denied basic needs s uch as food, clothing, or medical care? No 12/04/2024 In the past 12 months have y ou been in a relationship with a person who hurts, threatens, or tries to control you? No 12/04/2024 Are you denied basic needs s uch as food, clothing, or medical care? No 12/04/2024 In the past 12 months have y ou been in a relationship with a person who hurts, threatens, or tries to control you? No 12/04/2024 Comments No Sex and Gender Information Value [...] Description 03/21/2025 10:30 AM EDT Office Visit [facility] [address] [place] [id number] Unknown, Unknown, Donovan Dos Santos MD [address] [place] [id number] 07/09/2025 9:00 AM EST Office Visit [facility] [address] [place] [id number] Unknown, Unknown, Leeann Joyce PA-C [address] [place] [phone] documented as of this encounter Visit Diagnoses Not on filedocumented in this encounter Care Teams Laboratory Supervisor Relationship Specialty Start Date End Date Holly Cobb PA [address] [place] [id number] PCP - General Physician Model Set Artist 11/23/24 documented as of this encounter Additional Source Comments The information contained in this document represents components of the legal health record. It is not the complete legal health record.[facility]
== END 2025-03-06 09:39 | disposition home or self-care (01) ==
LOC: HO.HMCFM 08:59
PROVIDERS: PCP Physician Assistant Medical; Visit Provider Physician Assistant Medical
DX: R10.13 Epigastric pain (principal); Z91.038 Other insect allergy status; E66.01 Morbid (severe) obesity due to excess calories; Z68.39 Body mass index [BMI] 39.0-39.9, adult; R11.2 Nausea with vomiting, unspecified

== ENCOUNTER → 2025-03-06 08:58 | Outpatient (BNVA) | payer OTHER, SELFPAY | PROVIDERS: PCP Physician Assistant Medical; Visit Provider Physician Assistant Medical | DX: R10.13 Epigastric pain (principal); Z91.038 Other insect allergy status; E66.01 Morbid (severe) obesity due to excess calories; Z68.39 Body mass index [BMI] 39.0-39.9, adult; R11.2 Nausea with vomiting, unspecified; Z71.3 Dietary counseling and surveillance; Z87.891 Personal history of nicotine dependence | CPT/HCPCS: 99212 ==